=== PATIENT | male | born 1950 | race Caucasian/White ===

== ENCOUNTER 2018-10-23 11:04 | Day surgery (SDC) | payer MEDICARE, OTHER ==
[~2018-10-23] VITALS: Ht 180.3 cm; Wt 100.9 kg
[~2018-10-23 11:04] MED LIST: ALBU90OI INH; AMLO10 PO; ANTOXYBENA OT; ATOR20 PO; CIPHYDOTSU OT; CLAR500 PO; GABA100 PO; HYDACE5 PO; HYDCHL12.5 PO; HYDCHL25; LISI10; LISI20 PO; NEOPOLHYDS OT; PRED20 PO; TRAM50 PO; ZESTRIL40 MG PO; [UNRECOGNIZED DRUG - OTHER]
--- NOTE | 2018-10-23 12:20 | NUR ---
10/23/[address] AT BEDSIDE TO DO INJECTION. PULSE OXIMETER APPLIED AFTER VERSED GIVEN BY
== END 2018-10-23 13:25 | disposition home or self-care (01) ==
LOC: ORSCSDS 11:04
PROVIDERS: Orthopaedic Surgery
PROC: 01N54ZZ Release Median Nerve, Percutaneous Endoscopic Approach (ICD-10-PCS; principal; 2018-10-23 11:45)
DX: G56.01 Carpal tunnel syndrome, right upper limb (principal); I10 Essential (primary) hypertension; E11.9 Type 2 diabetes mellitus without complications; Z79.899 Other long term (current) drug therapy; F17.210 Nicotine dependence, cigarettes, uncomplicated
CPT/HCPCS: 82947; J0690; J2250; J3010; J7120

== ENCOUNTER 2020-05-09 12:08 | Day surgery (SDC) | payer MEDICARE, OTHER ==
[~2020-05-09] VITALS: Ht 180.3 cm; Wt 102.9 kg
[~2020-05-09 12:08] MED LIST changes: -ATOR20 PO; +Aspirin EC81 MG PO; -GABA100 PO; +NORTRIPTYLINE H10 MG PO; +Norco 7.5-3251 EACH PO; +OXYCODONE-ACET1 EAC3 PO; +ROSU5 PO
== END 2020-05-09 18:12 | disposition home or self-care (01) ==
LOC: ATC 12:08
DX: L02.214 Cutaneous abscess of groin (principal); L03.314 Cellulitis of groin; F17.200 Nicotine dependence, unspecified, uncomplicated
CPT/HCPCS: 96365; 96366; J3370; J7050

== ENCOUNTER 2020-05-10 01:21 | Day surgery (SDC) | payer MEDICARE, OTHER | END 2020-05-10 09:40 | disposition home or self-care (01) | LOC: ATC 01:21 | DX: L02.214 Cutaneous abscess of groin (principal); F17.200 Nicotine dependence, unspecified, uncomplicated | CPT/HCPCS: 96365; 96366; J3370; J7050 ==

== ENCOUNTER → 2021-06-09 | Outpatient (CLI) | payer MEDICARE, OTHER | END | disposition home or self-care (01) | LOC: LAB SHORT 13:14 → LAB 13:14 | DX: S81.801A Unspecified open wound, right lower leg, initial encounter (principal) | CPT/HCPCS: 87070; 87075; 87077; 87147; 87186; 87205 ==

== ENCOUNTER 2022-06-21 12:56 | Inpatient (IN) | payer MEDICARE, OTHER ==
[~2022-06-21] VITALS: Ht 180.3 cm; Wt 66.7 kg
[~2022-06-21 12:56] MED LIST changes: -CYMBALTA30 M2 PO; -NEURONTIN300 MG PO; -NORTRIPTYLINE H2511 PO
[2022-06-21 17:28] LABS: Source, Urine Straight Cath
[2022-06-21 17:33] LABS: Appearance, Urine Clear (Clear); Bilirubin, Urine Neg (Neg); Blood, Urine Neg (Neg); Color, Urine Amber (P-Yellow); Glucose Qualitative, Urine Neg (Neg); Ketones, Urine Neg (Neg); Leukocyte Esterase, Urine Neg (Neg); Nitrite, Urine Neg (Neg); Protein, Urine 2+ (Neg); Urobilinogen, Urine NORM (Normal)
[2022-06-21 17:50] LABS: Bacteria Many /hpf; Hyaline Casts 0-2 /lpf (0-2); Red Blood Cells, Urine 0-2 /hpf (0-2); Squamous Epithelial Cells Few /hpf (Few); Transitional Epithelial Cells Rare /hpf (0-Rare)
[2022-06-21] MEDS ORDERED: CYMBALTA30 M2 PO (19:30)
[2022-06-21] MEDS ORDERED: NEURONTIN300 MG PO (19:30)
[2022-06-21] MEDS ORDERED: NORTRIPTYLINE H2511 PO (19:31)
--- NOTE | 2022-06-22 04:12 | NUR ---
SHIFT SUMMARY PT TO FLOOR FROM ED AT 2047. PT COMPLAINS OF HEAD AND UPPER ABDOMINAL PAIN. PT MEDICATED PER EMAR. PT SLEEPING OFF AND ON THROUGHOUT THE NIGHT. PT HAS NO COMPLAINTS AT THIS TIME, RESTING QUIETLY IN HIS ROOM. PT HAS CALL LIGHT WITHIN HIS REACH.
[2022-06-22 04:48] LABS: BASOPHILS ABSOLUTE AUTO 0.04 K/mm3 (0.00-0.23); BASOPHILS PERCENT AUTO 1 % (0-2); EOSINOPHILS ABSOLUTE AUTO 0.08 K/mm3 (0.00-0.68); EOSINOPHILS PERCENT AUTO 1 % (0-6); Hematocrit 31.6 % (37.0-53.0); Hemoglobin 10.4 g/dL (13.5-17.5); IMMATURE GRAN ABSOLUTE AUTO 0.11 K/mm3 (0.00-0.10); IMMATURE GRAN PERCENT AUTO 1 % (0-1); LYMPHOCYTES ABSOLUTE AUTO 0.75 K/mm3 (0.84-5.20); LYMPHOCYTES PERCENT AUTO 9 % (21-46); MONOCYTES ABSOLUTE AUTO 0.84 K/mm3 (0.16-1.47); MONOCYTES PERCENT AUTO 10 % (4-13); Mean Corpuscular HGB Conc 32.9 g/dL (31.5-36.5); Mean Corpuscular Volume 91 fL (80-100); Mean Platelet Volume 10.4 fL (9.1-12.4); NEUTROPHILS ABSOLUTE AUTO 6.52 K/mm3 (1.96-9.15); NEUTROPHILS PERCENT AUTO 78 % (41-73); Platelet Count 319 K/mm3 (150-400); RDW Coefficient Variation 15.2 % (11.7-14.2); RDW Standard Deviation 50.5 fL (35.1-46.3); Red Blood Cell Count 3.47 M/mm3 (4.30-5.90); White Blood Cell Count 8.34 K/mm3 (4.00-11.30)
[2022-06-22 05:18] LABS: Albumin, Blood 1.9 g/dL (3.4-5.0); Albumin/Globulin Ratio 0.4 (0.8-1.8); Bilirubin, Total 0.3 mg/dL (0.1-1.0); Bun/Creatinine Ratio 38.8 (12.0-20.0); Calcium, Blood 8.1 mg/dL (8.5-10.1); Creatinine, Blood 2.81 mg/dL (0.60-1.20); Globulin, Blood 4.4 g/dL (2.2-4.0); Potassium, Blood 4.2 mmol/L (3.5-5.5); Thyroid Stimulating Hormone 1.85 uIU/mL (0.360-4.800); Total Protein, Blood 6.3 g/dL (6.4-8.2)
[2022-06-22 07:09] LABS: Adenovirus F 40/41 Not Detected (NOT DETECT); Astrovirus Not Detected (NOT DETECT); Campylobacter Sp Not Detected (NOT DETECT); Cryptosporidium Not Detected (NOT DETECT); Cyclospora Cayetanensis Not Detected (NOT DETECT); E. Coli O157 Not Detected (NOT DETECT); Entamoeba Histolytica Not Detected (NOT DETECT); Enteroaggregative E. coli-EAEC Not Detected (NOT DETECT); Enteropathogenic E. coli-EPEC Not Detected (NOT DETECT); Enterotoxigenic E. coli-ETEC Not Detected (NOT DETECT); Giardia Lamblia Not Detected (NOT DETECT); Norovirus GI/GII Not Detected (NOT DETECT); Plesiomonas Shigelloides Not Detected (NOT DETECT); Rotavirus A Not Detected (NOT DETECT); Salmonella Sp Not Detected (NOT DETECT); Sapovirus Not Detected (NOT DETECT); Shiga Toxin-prod E. coli-STEC Not Detected (NOT DETECT); Shigella/Enteroin E. coli-EIEC Not Detected (NOT DETECT); Vibrio Cholerae Not Detected (NOT DETECT); Vibrio Sp Not Detected (NOT DETECT); Yersinia Enterocolitica Not Detected (NOT DETECT)
--- NOTE | 2022-06-22 10:44 | NUR ---
WAQAR CAN IS PATIENTS LIFE PARTNER, PHONE NUMBER [phone], WAQAR REPORTS PATIENT LIVES WITH HER BUT GOT INTO A ARGUEMENT WITH THE [employer]ANDLORD AND THEN THE PATIENT LEFT AND WAS CAMPLING WITH HIS DAUGHTERM SON IN LAW, AND GRANDSON. REPORTED TO CASE MANAGEMENT, PATIENT RESTING, NO DISTRESS
--- NOTE | 2022-06-22 16:04 | NUR ---
patient okayed to release information to Shavon De La Cruz his life partner
[2022-06-22 17:12] LABS: SARS-Cov-2 (COVID-19) PCR, MMC POSITIVE (NEGATIVE)
--- NOTE | 2022-06-22 18:24 | NUR ---
MAKES NEEDS KNOWN, ALERT AND ORIENTED, POSITIVE FOR COVID, ISOLATION UP, REPORTED TO DR PAYAN. LS DIMINISHED, RHONCHI AT TIMES, COUGH CLEARS CONGESTION. GOOD APPETITE, VOIDING PER BSU, DIARRHEA HAS SLOWED DOWN. RIB PAIN FROM FALL/COUGHING, NO N/V. NEGATIVE FOR C-DIFF. PATIENT OKAY RELEASE OF INFORMATION TO WAQAR CAN [phone]. CALL LIGHT WITH IN REACH, [facility]
[2022-06-23 05:17] LABS: BASOPHILS ABSOLUTE AUTO 0.03 K/mm3 (0.00-0.23); BASOPHILS PERCENT AUTO 0 % (0-2); EOSINOPHILS ABSOLUTE AUTO 0.03 K/mm3 (0.00-0.68); EOSINOPHILS PERCENT AUTO 0 % (0-6); Hematocrit 29.9 % (37.0-53.0); Hemoglobin 9.7 g/dL (13.5-17.5); IMMATURE GRAN ABSOLUTE AUTO 0.13 K/mm3 (0.00-0.10); IMMATURE GRAN PERCENT AUTO 2 % (0-1); LYMPHOCYTES ABSOLUTE AUTO 0.94 K/mm3 (0.84-5.20); LYMPHOCYTES PERCENT AUTO 11 % (21-46); MONOCYTES ABSOLUTE AUTO 0.76 K/mm3 (0.16-1.47); MONOCYTES PERCENT AUTO 9 % (4-13); Mean Corpuscular HGB 29.4 pg (26.0-34.0); Mean Corpuscular HGB Conc 32.4 g/dL (31.5-36.5); Mean Corpuscular Volume 91 fL (80-100); Mean Platelet Volume 10.3 fL (9.1-12.4); NEUTROPHILS ABSOLUTE AUTO 6.91 K/mm3 (1.96-9.15); NEUTROPHILS PERCENT AUTO 79 % (41-73); Platelet Count 318 K/mm3 (150-400); RDW Coefficient Variation 15.1 % (11.7-14.2); RDW Standard Deviation 50.3 fL (35.1-46.3)
[2022-06-23 05:34] LABS: Albumin, Blood 1.8 g/dL (3.4-5.0); Anion Gap 7 mmol/L (6-16); Blood Urea Nitrogen 82 mg/dL (8-24); CO2, Blood 17 mmol/L (21-32); Calcium, Blood 7.7 mg/dL (8.5-10.1); Chloride, Blood 112 mmol/L (98-108); Creatinine, Blood 2.16 mg/dL (0.60-1.20); Glomerular Filtration Rate 32 (60-); Glucose, Blood 99 mg/dL (70-99); Phosphorus, Blood 3.1 mg/dL (2.5-4.9); Potassium, Blood 4.3 mmol/L (3.5-5.5); Sodium, Blood 136 mmol/L (136-145)
--- NOTE | 2022-06-23 05:58 | NUR ---
SHIFT SUMMARY 71 YR M ADMITTED ON 06/21/22 FOR PNEUMONIA/ARF. FULL CODE. NO ACUTE CHANGES THIS SHIFT. PT STATES THAT HE IS HAVING TROUBLE USING THE BED SIDE URINAL AND IS URINATING ON HIMSELF. HE WAS CHANGED SEVERAL TIMES THIS SHIFT AND TOLD STAFF THAT HE HAS A NEW FOUND RESPECT FOR THEM AND THAT HE WAS VERY THANKFUL FOR THE CARE. HE IS PLEASANT AND COOPERATIVE. NO BM THIS SHIFT. HE C/O PAIN IN HIS HIPS AND LEGS AND ASKED FOR PAIN MEDICATION ONE TIME.
--- NOTE | 2022-06-23 13:29 | NUR ---
ON CARE ROUNDING NOTED THAT WHILE SLEEPING THE PT RESPIRATIONS SEEMED LABORED. WHEN ASKED THE PT STATED "I AM HAVING A HARD TIME GETTING AIR" PT WAS PLACED ON 2L O2 VIA NC EARLIER IN THE SHIFT D/T INCREASED WORK OF BREATHING. CALLED DR BARNETT AT THIS TIME BECAUSE OF THE PT APPARENT RESP DISTRESS. RESP RATE 26-30 O2 SATS 100% LUNG SOUNDS DIMINISHED FROM EARLIER IN THE SHIFT WITH POSSIBLE FINE CRACKLES. IVF DC'D PRECAUTION AT THE TIME DR WAS CALLED. AT THE BEDSIDE TO EVALUATE, STAT BREATHING Tx AND STAT CHEST XR ORDERED. PT TO REMAIN ON O2 AND IVF DC'D.
--- NOTE | 2022-06-23 15:36 | NUR ---
CARE ROUNDING- PT IN BED, NO S&S OF DISTRESS NOTED RESP E/U. WILL CTM.
--- NOTE | 2022-06-23 17:55 | NUR ---
SHIFT SUMMARY- PT ALERT AND ORIENTED. PT HAD AN EPISODE OF RESPIRATORY DISTRESS THIS AFTERNOON. PT RECIEVED A BREATHING Tx WHICH SEEMED TO PROVIDE SOME RELIEF. BNP WAS ELEVATED SO PT WAS GIVEN IV LASIX. POST LASIX THE PT IS SITTING UP IN BED EATING HIS DINNER, PT WAS UNABLE TO SIT UP IN BED WITHOUT GREAT DIFFICULTY EARLIER IN THE SHIFT. PT SITTING UP AT THE EOB NO S&S OF DISTRESS AT THIS TIME WILL CTM AND PASS ON TO NIGHT RN IN REPORT.
[2022-06-24 05:32] LABS: BASOPHILS ABSOLUTE AUTO 0.04 K/mm3 (0.00-0.23); BASOPHILS PERCENT AUTO 0 % (0-2); EOSINOPHILS ABSOLUTE AUTO 0.07 K/mm3 (0.00-0.68); EOSINOPHILS PERCENT AUTO 1 % (0-6); Hemoglobin 10.2 g/dL (13.5-17.5); IMMATURE GRAN ABSOLUTE AUTO 0.12 K/mm3 (0.00-0.10); IMMATURE GRAN PERCENT AUTO 1 % (0-1); LYMPHOCYTES ABSOLUTE AUTO 0.95 K/mm3 (0.84-5.20); LYMPHOCYTES PERCENT AUTO 8 % (21-46); MONOCYTES ABSOLUTE AUTO 0.81 K/mm3 (0.16-1.47); MONOCYTES PERCENT AUTO 7 % (4-13); Mean Corpuscular HGB 29.7 pg (26.0-34.0); Mean Corpuscular HGB Conc 32.9 g/dL (31.5-36.5); Mean Corpuscular Volume 90 fL (80-100); Mean Platelet Volume 10.6 fL (9.1-12.4); NEUTROPHILS ABSOLUTE AUTO 10.19 K/mm3 (1.96-9.15); NEUTROPHILS PERCENT AUTO 84 % (41-73); Platelet Count 390 K/mm3 (150-400); RDW Coefficient Variation 15.1 % (11.7-14.2); RDW Standard Deviation 49.8 fL (35.1-46.3); Red Blood Cell Count 3.44 M/mm3 (4.30-5.90); White Blood Cell Count 12.18 K/mm3 (4.00-11.30)
[2022-06-24 05:55] LABS: Albumin, Blood 1.9 g/dL (3.4-5.0); Anion Gap 8 mmol/L (6-16); Blood Urea Nitrogen 66 mg/dL (8-24); Bun/Creatinine Ratio 33.3 (12.0-20.0); CO2, Blood 20 mmol/L (21-32); Calcium, Blood 8.1 mg/dL (8.5-10.1); Chloride, Blood 110 mmol/L (98-108); Creatinine, Blood 1.98 mg/dL (0.60-1.20); Glomerular Filtration Rate 35 (60-); Glucose, Blood 108 mg/dL (70-99); Phosphorus, Blood 3.3 mg/dL (2.5-4.9); Sodium, Blood 138 mmol/L (136-145)
--- NOTE | 2022-06-24 06:05 | NUR ---
SHIFT SUMMARY 71 YR M ADMITTED ON 06/21/22. FULL CODE. PT STATES THAT HE IS GETTING STRONGER AND IS ABLE TO SIT UP WHERE BEFORE HE COULD NOT. HOWEVER, HE STATES THAT HE IS HAVING A HARD TIME USING THE URINAL AND HE IS SPILLING URINE EVERYWHERE. HE SEEMS FRUSTRATED THAT HE IS HAVING TO URINATE SO OFTEN AND I EXPLAINED TO HIM THAT HE IS BEING DIURESED AND WHAT THAT DOES. HE HAD C/O VARMA AND WAS MEDICATED W/ TYLENOL PER EMAR. VITALS ARE WITHIN NORMAL LIMITS.
--- NOTE | 2022-06-24 16:43 | NUR ---
SHIFT SUMMARY PT AxOx4. PLEASANT AND COOPERATIVE WITH CARE. PT REPORTS FEELING WORSE TODAY. HE STATES HE IS EXTREMELY FATIGUED AND WEAK AND JUST WANTS TO STAY IN BED AND SLEEP. PT IS BREATHING ROOM AIR WITHOUT DIFFICULTY THIS SHIFT. PER WARD SECRETARY, HR SINUS RHYTHM AT 87. VITALS REVIEWED. PT IS CURRENTLY RESTING IN BED WITH CALL LIGHT IN REACH. CURRENT PLAN IS TO CONTINUE IV ABX AND REMDESIVIR, THEN DC TO SNF.
--- NOTE | 2022-06-25 05:13 | NUR ---
SHIFT SUMMARY 71 YR M ADMITTED ON 06/21/22 FOR PNEUMONIA. FULL CODE. COVID POSITIVE. NO ACUTE CHANGES THIS SHIFT. PT REQUESTED A SHOWER AND STATED THAT HE FELT MUCH BETTER AFTERWARD. HE STATED THAT HE WANTED HIS SANTIAGO SHAVED OFF BUT WOULD NOT ALLOW THE MANAGER WEB APPLICATION TO DO IT SHE WAS UNEXPERIENCED W/ SANTIAGO SHAVING. HE STILL C/O WEAKNESS AND SOB BUT REFUSES TO USE OXYGEN. HE WAS SPILLING HIS URINAL EVERY TIME HE USED IT AND HAD URINE ALL OVER THE BED AND FLOOR SO IT WAS DECIDED TO TRY A CONDOM CATH. PT WAS IN AGREEANCE TO THIS AND IT APPEARS TO BE WORKING WELL FOR HIM AND HE IS HAPPY WITH IT. PT STATES THAT HE IS MORE TIRED THAN USUAL AND JUST WANTS TO SLEEP. HE REQUESTED, AND RECEIVED, TYLENOL FOR HEADACHE.
[2022-06-25 05:21] LABS: BASOPHILS ABSOLUTE AUTO 0.04 K/mm3 (0.00-0.23); BASOPHILS PERCENT AUTO 0 % (0-2); EOSINOPHILS PERCENT AUTO 1 % (0-6); Hematocrit 32.6 % (37.0-53.0); Hemoglobin 10.5 g/dL (13.5-17.5); IMMATURE GRAN ABSOLUTE AUTO 0.13 K/mm3 (0.00-0.10); IMMATURE GRAN PERCENT AUTO 1 % (0-1); LYMPHOCYTES ABSOLUTE AUTO 1.16 K/mm3 (0.84-5.20); LYMPHOCYTES PERCENT AUTO 9 % (21-46); MONOCYTES ABSOLUTE AUTO 0.83 K/mm3 (0.16-1.47); MONOCYTES PERCENT AUTO 6 % (4-13); Mean Corpuscular HGB 29.4 pg (26.0-34.0); Mean Corpuscular HGB Conc 32.2 g/dL (31.5-36.5); Mean Corpuscular Volume 91 fL (80-100); Mean Platelet Volume 10.2 fL (9.1-12.4); NEUTROPHILS ABSOLUTE AUTO 11.38 K/mm3 (1.96-9.15); NEUTROPHILS PERCENT AUTO 83 % (41-73); Platelet Count 396 K/mm3 (150-400); RDW Coefficient Variation 15.4 % (11.7-14.2); RDW Standard Deviation 51.8 fL (35.1-46.3); Red Blood Cell Count 3.57 M/mm3 (4.30-5.90); White Blood Cell Count 13.64 K/mm3 (4.00-11.30)
[2022-06-25 06:11] LABS: Albumin, Blood 1.8 g/dL (3.4-5.0); Anion Gap 7 mmol/L (6-16); Blood Urea Nitrogen 55 mg/dL (8-24); Bun/Creatinine Ratio 32.2 (12.0-20.0); CO2, Blood 21 mmol/L (21-32); Calcium, Blood 7.9 mg/dL (8.5-10.1); Chloride, Blood 109 mmol/L (98-108); Creatinine, Blood 1.71 mg/dL (0.60-1.20); Glomerular Filtration Rate 42 (60-); Glucose, Blood 107 mg/dL (70-99); Sodium, Blood 137 mmol/L (136-145)
--- NOTE | 2022-06-25 18:51 | NUR ---
PATIENT IS ALERT AND ORIENTED AND COOPERATIVE WITH CARE. STATES HE FEELS BETTER TODAY. C/O CONSTIPATION, MEDICATED PER EMAR. WORKED WITH PT OT. CONDOM CATHETER IN PLACE AND WORKING WELL. ON RA. NO C/O SOB. WILL CONTINUE TO MONITOR
--- NOTE | 2022-06-25 22:31 | NUR ---
PERSONAL CARE DURING ASSESSMENT I NOTICED THE PT'S BRIEFS WERE DAMP AND HIS CONDOM CATHETER WAS NOT FITTING WELL. I OFFERED TO CHANGE HIM AND TO READJUST THE CATHETER BUT PT REFUSED CARE UNTIL TOMORROW MORNING SO HE CAN SLEEP.
--- NOTE | 2022-06-26 05:50 | NUR ---
SHIFT SUMMARY PT AOX4. EARLY IN THE NIGHT AFTER HIS FIRST ATTENDS CHANGE HIS CONDOM CATHETER WAS LEAKING AND HE REFUSED ALL CARE STATING HE JUST WANTED TO REST. PT REFUSED HEPARIN AND SCDS, I EDUCATED ABOUT INCREASED RISK OF BLOOD CLOTS FROM BOTH [facility]. PT CONTINUES TO HAVE WET, PRODUCTIVE COUGH AND MAINTANES O2 SAT > 93% ON RA. PT IS COVID +, HAS AN OCCASIONAL WET PRODUCTIVE COUGH AND C/O FATIGUE.
[2022-06-26 05:57] LABS: BASOPHILS ABSOLUTE AUTO 0.05 K/mm3 (0.00-0.23); BASOPHILS PERCENT AUTO 0 % (0-2); EOSINOPHILS ABSOLUTE AUTO 0.09 K/mm3 (0.00-0.68); EOSINOPHILS PERCENT AUTO 1 % (0-6); Hemoglobin 9.7 g/dL (13.5-17.5); IMMATURE GRAN ABSOLUTE AUTO 0.12 K/mm3 (0.00-0.10); IMMATURE GRAN PERCENT AUTO 1 % (0-1); LYMPHOCYTES ABSOLUTE AUTO 1.12 K/mm3 (0.84-5.20); LYMPHOCYTES PERCENT AUTO 8 % (21-46); MONOCYTES ABSOLUTE AUTO 0.94 K/mm3 (0.16-1.47); MONOCYTES PERCENT AUTO 7 % (4-13); Mean Corpuscular HGB 29.8 pg (26.0-34.0); Mean Corpuscular HGB Conc 33.4 g/dL (31.5-36.5); Mean Corpuscular Volume 89 fL (80-100); Mean Platelet Volume 9.6 fL (9.1-12.4); NEUTROPHILS ABSOLUTE AUTO 10.96 K/mm3 (1.96-9.15); NEUTROPHILS PERCENT AUTO 83 % (41-73); Platelet Count 362 K/mm3 (150-400); RDW Coefficient Variation 15.3 % (11.7-14.2); RDW Standard Deviation 50.4 fL (35.1-46.3); Red Blood Cell Count 3.25 M/mm3 (4.30-5.90); White Blood Cell Count 13.28 K/mm3 (4.00-11.30)
[2022-06-26 06:15] LABS: Albumin, Blood 1.7 g/dL (3.4-5.0); Anion Gap 8 mmol/L (6-16); Blood Urea Nitrogen 49 mg/dL (8-24); Bun/Creatinine Ratio 29.3 (12.0-20.0); CO2, Blood 20 mmol/L (21-32); Calcium, Blood 7.9 mg/dL (8.5-10.1); Chloride, Blood 107 mmol/L (98-108); Creatinine, Blood 1.67 mg/dL (0.60-1.20); Glomerular Filtration Rate 43 (60-); Glucose, Blood 112 mg/dL (70-99); Phosphorus, Blood 3.3 mg/dL (2.5-4.9); Potassium, Blood 4.3 mmol/L (3.5-5.5); Sodium, Blood 135 mmol/L (136-145)
--- NOTE | 2022-06-26 17:29 | NUR ---
END OF SHIFT SUMMARY: PATIENT REPORTED FEELING WORSE TODAY. HE SPECIFICALLY MENTIONED VERTIGO AND FATIGUE. DISCUSSED INTERVENTIONS. INITIALLY PATIENT DECLINED, BUT ACCEPTED PRN FOR VERTIGO THIS EVENING. PATIENT REPOTED SOME IMPROVEMENT THE DAY PROGRESSED. PATIENT WORKED WITH PT AND OT TODAY. SOME SHORTNESS OF BREATH NOTED WITH ACTIVITY. PATIENT RECOVERED QUICKLY AT REST. PATIENT UP TO THE BEDSIDE COMMODE. PATIENT HAS HAD MULTIPLE, FORMED BOWEL MOVEMENTS TODAY. PATIENT HAS BEEN ABLE TO SUCCESSFULLY USE THE URINAL.
--- NOTE | 2022-06-27 05:35 | NUR ---
SHIFT SUMMARY PT REPORTS NO MORE VERTIGO AND GREATLY IMPROVED FATIGUE THIS MORNING AFTER SLEEPING WELL THROUGH MOST OF THE NIGHT. PT WAS ABLE TO VOID IN THE URINAL BUT HAD ONE EPISODE OF INCONTINENC. NO C/O OF PAIN OR NAUSEA T/O SHIFT. PT IS GETTING UP AND USING THE BEDSIDE COMMODE. PT HAS AN OCCASIONAL PRODUCTIVE COUGH AND IS COVID+.
--- NOTE | 2022-06-27 18:52 | NUR ---
END OF SHIFT SUMMARY: PATIENT REPORTED FEELING MORE TIRED TODAY. PATIENT SLEPT WHEN STAFF OR FAMILY WAS NOT IN HIS ROOM. PATIENT CONTINUED TO DENY VERTIGO. PATIENT REPORTED KNEE PAIN THIS MORNING THAT RESOLVED WITH REPOSITIONING AND PRN PAIN MEDICATION. PATIENT UP TO [place] [facility] [place] PATIENT WORKED IN THE ROOM WITH PT. PATIENT CONTINUES TO HAVE A MODERATE APPETITE (ABOUT 50-60%) OF HIS TRAY. PATIENT REPORTED THAT HIS BREATHING FEELS ABOUT THE SAME YESTERDAY. CONTINUES TO HAVE A NON-PRODUCTIVE COUGH. PATIENT DENIES SHORTNESS OF BREATH AT REST. HAS SOME SHORTNESS OF BREATH WITH ACTIVITY.
--- NOTE | 2022-06-28 04:36 | NUR ---
SHIFT SUMMARY NO ACUTE CHANGES THIS SHIFT. PT REMAINED ON RA, O2 SATS > 90%. PT DOES REPORT SOME SOB WITH EXERTION BUT MINIMALLY AND PT RECOVERS EASILY. PT UP INDEPENDENT TO BSC OR USES URINAL INDEPENDENTLY IN THE BED. PT DENIED ANY DIZZINESS OR VERTIGO TONIGHT. ONLY REPORTS FEELING "TIRED". SLEPT MOST OF THE EVENING. NO EVENTS ON TELEMETRY. RUNNING SR IN THE 80'S-90'S. VITAL SIGNS STABLE. PLAN FOR D/C TO SNF AFTER QUARANTINE.
--- NOTE | 2022-06-28 17:00 | NUR ---
END OF SHIFT SUMMARY: PATIENT REPORTED FEELING LESS FATIGUE TODAY AND THAT HIS COUGH HAS IMPROVED. PATIENT DENIED VERTIGO THROUGHOUT THE SHIFT. PATIENT CONTINUES TO DENY SHORTNESS OF BREATH, BUT REPORTS MINIMAL SHORTNESS OF BREATH WITH ACTIVITY. PATIENT UP TO THE RECLINER, BSC AND WORKED WITH PT. PATIENT COMPLAINED OF A HEADACHE THIS MORNING THAT RESOLVED WITH PRN TYLENOL AND REST.
--- NOTE | 2022-06-29 04:52 | NUR ---
SHIFT SUMMARY PT SLEPT MUCH OF THE NIGHT. REPORTS FEELING OVERALL IMPROVED. HAD A HEADACHE AGAIN THIS EVENING THAT HE STATED "HAD BEEN BUILDING UP FOR A WHILE". MEDICATED X 1 W/ TYLENOL WITH GOOD EFFECT. PT MOSTLY CONTINENT BUT HAS SOME DIFFICULTY WITH USING HIS HANDS AND DID DUMP THE URINAL THIS EVENING. HAD A BOWEL MOVEMENT TONIGHT. REMAINED ON RA. TELEMETRY READING SR IN THE 90'S. VITAL SIGNS STABLE. PT AWAITING QUARANTINE TIME FOR D/C TO SNF.
--- NOTE | 2022-06-29 18:43 | NUR ---
SHIFT SUMMARY PLEASANT 71-YEAR-OLD MALE, FULL CODE, A&O X4. PTN STANDBY ASSIST, INDEPENDENT IN ROOM. ON ROOM AIR. PERIPHERAL IV TO LEFT UPPER ARM, DC'D THIS SHIFT. ORDER FOR NO IV ACCESS BY DR KAUR. TELEMETRY SINUS, AND SISSY DC'D PER MD ORDER THIS SHIFT. PTN INDEPENDENT TO BEDSIDE COMMODE OR USE OF URINAL. PTN USE OF ADAPTIVE DEVICES FOR EATING DUE TO WEAK BARREL FILLER STRENGTH POST CARPAL TUNNEL SURGERY. PTN NOT INTERESTED IN HEPARIN INJECTIONS AND SCDS WERE ORDERED. DIET REGULAR. ISOLATION PRECAUTIONS IN PLACE FOR COVID. AWAITING PLACEMENT TO SNF, POSSIBLY 07/03. CONTINUE TO MONITOR.
--- NOTE | 2022-06-30 05:04 | NUR ---
SHIFT SUMMARY: PT IS ALERT AND ORIENTED. PT IS CALM AND COOPERATIVE WITH CARE. PT CALLS APPROPRIATELY. PT IS INDEPENDENT IN THE ROOM. PT REPORTS HEADACHE, GAVE PRN TYLENOL. PT DENIES NAUSEA, VOMITING, AND SOB. PT SLEPT MUCH OF THE NIGHT WITHOUT INCIDENT. BED IN LOW POSITION, CALL LIGHT WITHIN REACH. WILL CONTINUE TO MONITOR.
--- NOTE | 2022-06-30 17:54 | NUR ---
SHIFT SUMMARY PT A&O X4. VSS. DENIED PAIN OR ANY DISCOMFORT THROUGHOUT SHIFT. PT DID STATE HE WAS QUITE HUNGRY HOWEVER AND CONTINUED TO ASK FOR SNACKS. HE HAS SAT UP IN THE CHAIR MAJORITY OF THE SHIFT WATCHING TV. CALLS APPROPRIATELY, IS COOPERATIVE WITH ALL CARE. CALL LIGHT WITHIN REACH. PLAN IS TRANSFER TO SNF/REHAB ON SATURDAY.
--- NOTE | 2022-07-01 05:38 | NUR ---
SHIFT SUMMARY: PT IS ALERT AND ORIENTED. PT IS CALM AND COOPERATIVE WITH CARE. PT CALLS APPROPRIATELY. PT IS INDEPENDENT IN THE ROOM. PT REPORTS HEADACHE, GAVE PRN TYLENOL. PT DENIES NAUSEA, VOMITING, AND SOB. PT SLEPT MUCH OF THE NIGHT WHEN NOT DISTURBED. NO ACUTE CHANGES OR COMPLICATIONS THIS SHIFT. BED IN LOW POSITION, CALL LIGHT WITHIN REACH. WILL REPORT TO DAY NURSE.
--- NOTE | 2022-07-01 16:49 | NUR ---
SHIFT SUMMARY PT IND IN ROOM. UP IN CHAIR MOST THE DAY. AMBULATES SMALL DISTANCES AND USES THE BSC BY HIMSELF. PT CONTINUES TO DENY SOB AND SATING IN THE 90S ON RA. DR. KAUR TALKED WITH THE PT ABOUT POSSIBLY GOING HOME WITH HH VS SNF LATER THIS WEEK. PHYSICAL THERAPY TO SEE THE PT AGAIN TOMORROW TO HELP WITH THIS DECISION.
--- NOTE | 2022-07-02 01:45 | NUR ---
SHIFT SUMMARY PTN A&O, INDEPENDENT, CONTINENT. NO IV ACCESS ORDER. DROPLET PRECAUTIONS IN PLACE. EXPECTED TO DISCHARGE HOME WITH OR TO [facility]. FULL CODE. PTN WAS SLEEPING AT 2140 AND REFUSED MEDS, STATING THAT HE IS USED TO TAKING THEM AROUND 2029. CONTINUE TO MONITOR.
--- NOTE | 2022-07-02 05:54 | NUR ---
This nurse assumed care of patient after 214. Patient is noted to be sleeping quietly in room. Patient remains in enhanced isolation for covid infection, he should be out of quarentine today per report. Pt does not like to be disturbed. He is stable. Will continue to monitor.
[2022-07-02] MEDS ORDERED: ACET325 PO (11:04)
[2022-07-02] MEDS ORDERED: GUAI600T33 PO (11:05)
[2022-07-02] MEDS ORDERED: FAMO10 PO (11:05)
[2022-07-02] MEDS ORDERED: MECL25 PO (11:05)
[2022-07-02] MEDS ORDERED: MELATONIN5 M1 PO (11:06)
--- NOTE | 2022-07-02 12:29 | NUR ---
DISCHARGE SUMMARY: PT DISCHARGED TODAY TO HOME WITH HOME HEALTH. PT EDUCATED ON DISCHARGE PLAN AND MEDICATIONS. PT REQUESTED MEDICATION SCRIPTS BE SENT TO [facility] DESPITE BEING CLOSED TODAY. COMPLETED REQUESTED. PT ASSISTED WITH PACKING UP BELONGINGS. PT DRESSED SELF AND ESCORTED TO V AND WAS PICKED UP BY FRIEND.
== END 2022-07-02 12:18 | disposition home health service (06) | DRG 871 ==
LOC: ER 12:56 → MEDS 21:36
PROVIDERS: Emergency Medicine; Internal Medicine; Student in an Organized Health Care Education/Training Program; ADMIT Internal Medicine
PROC: 3E03329 Introduction of Other Anti-infective into Peripheral Vein, Percutaneous Approach (ICD-10-PCS; principal; 2022-06-22)
PROC: 8E0ZXY6 Isolation (ICD-10-PCS; 2022-06-23)
PROC: XW033E5 Introduction of Remdesivir Anti-infective into Peripheral Vein, Percutaneous Approach, New Technology Group 5 (ICD-10-PCS; 2022-06-23)
DX: A41.9 Sepsis, unspecified organism (principal); J18.9 Pneumonia, unspecified organism; U07.1 COVID-19; J96.01 Acute respiratory failure with hypoxia; N17.9 Acute kidney failure, unspecified; R65.20 Severe sepsis without septic shock; E78.00 Pure hypercholesterolemia, unspecified; F17.210 Nicotine dependence, cigarettes, uncomplicated; R42 Dizziness and giddiness; E86.0 Dehydration; K52.9 Noninfective gastroenteritis and colitis, unspecified; R51.9 Headache, unspecified; I12.9 Hypertensive chronic kidney disease with stage 1 through stage 4 chronic kidney disease, or unspecified chronic kidney disease; N18.9 Chronic kidney disease, unspecified; Z71.6 Tobacco abuse counseling; Z98.890 Other specified postprocedural states; Z98.41 Cataract extraction status, right eye; Z98.42 Cataract extraction status, left eye; Z79.82 Long term (current) use of aspirin; Z79.899 Other long term (current) drug therapy
CPT/HCPCS: 36415; 70450; 71045; 74176; 80053; 80069; 81001; 82140; 83036; 83605; 83880; 84443; 85025; 87040; 87086; 87507; 93005; 93010; 94640; 94664; 94760; 96365; 96375; 97110; 97112; 97116; 97161; 97166; 97530; 97535; 99285-25; A9270; J0248; J0456; J0696; J1644; J1940; J2765; J3010; J7030; J7050; U0004

== ENCOUNTER → 2022-06-21 | Outpatient (CLI) | payer MEDICARE, OTHER ==
[~2022-06-21] MED LIST changes: +CYMBALTA30 M2 PO; +NEURONTIN300 MG PO; +NORTRIPTYLINE H2511 PO
[2022-06-21 11:59] LABS: BASOPHILS ABSOLUTE AUTO 0.03 K/mm3 (0.00-0.23); BASOPHILS PERCENT AUTO 0 % (0-2); EOSINOPHILS ABSOLUTE AUTO 0.03 K/mm3 (0.00-0.68); EOSINOPHILS PERCENT AUTO 0 % (0-6); Hematocrit 34.6 % (37.0-53.0); Hemoglobin 11.8 g/dL (13.5-17.5); IMMATURE GRAN ABSOLUTE AUTO 0.14 K/mm3 (0.00-0.10); IMMATURE GRAN PERCENT AUTO 1 % (0-1); LYMPHOCYTES ABSOLUTE AUTO 0.97 K/mm3 (0.84-5.20); LYMPHOCYTES PERCENT AUTO 10 % (21-46); MONOCYTES ABSOLUTE AUTO 0.87 K/mm3 (0.16-1.47); MONOCYTES PERCENT AUTO 9 % (4-13); Mean Corpuscular HGB Conc 34.1 g/dL (31.5-36.5); Mean Corpuscular Volume 88 fL (80-100); Mean Platelet Volume 10.6 fL (9.1-12.4); NEUTROPHILS ABSOLUTE AUTO 8.06 K/mm3 (1.96-9.15); NEUTROPHILS PERCENT AUTO 80 % (41-73); Platelet Count 375 K/mm3 (150-400); RDW Coefficient Variation 15.2 % (11.7-14.2); RDW Standard Deviation 48.9 fL (35.1-46.3); Red Blood Cell Count 3.93 M/mm3 (4.30-5.90)
[2022-06-21 12:08] LABS: Albumin, Blood 2.3 g/dL (3.4-5.0); Albumin/Globulin Ratio 0.4 (0.8-1.8); Bilirubin, Total 0.3 mg/dL (0.1-1.0); Bun/Creatinine Ratio 29.1 (12.0-20.0); Calcium, Blood 8.5 mg/dL (8.5-10.1); Creatinine, Blood 3.85 mg/dL (0.60-1.20); Globulin, Blood 5.2 g/dL (2.2-4.0); Potassium, Blood 4.2 mmol/L (3.5-5.5); Total Protein, Blood 7.5 g/dL (6.4-8.2)
== END | disposition home or self-care (01) ==
LOC: LAB 11:53 → LAB SHORT 11:53
PROVIDERS: Physician Assistant
DX: R19.7 Diarrhea, unspecified (principal)
CPT/HCPCS: 80053; 85025

== ENCOUNTER → 2023-06-21 | Outpatient (CLI) | payer MEDICARE, OTHER ==
[~2023-06-21] MED LIST changes: +ACET325 PO; +CYMBALTA30 M2 PO; +FAMO10 PO; +GUAI600T33 PO; +MECL25 PO; +MELATONIN5 M1 PO; +NEURONTIN300 MG PO; +NORTRIPTYLINE H2511 PO
[2023-06-21 13:16] LABS: Protein, Urine Quantitative 347.8 mg/dL (0.0-11.9)
== END ==
LOC: LAB 08:00 → LAB SHORT 08:00
PROVIDERS: Internal Medicine Nephrology
DX: N18.30 Chronic kidney disease, stage 3 unspecified (principal); D63.1 Anemia in chronic kidney disease; N25.81 Secondary hyperparathyroidism of renal origin; E55.9 Vitamin D deficiency, unspecified; E78.00 Pure hypercholesterolemia, unspecified; R76.9 Abnormal immunological finding in serum, unspecified; R94.5 Abnormal results of liver function studies; R94.6 Abnormal results of thyroid function studies; D51.8 Other vitamin B12 deficiency anemias; D52.8 Other folate deficiency anemias; D50.9 Iron deficiency anemia, unspecified
CPT/HCPCS: 81050; 82043; 82570; 84156

== ENCOUNTER 2024-05-26 14:02 | Inpatient (IN) | payer MEDICARE, OTHER ==
[~2024-05-26] VITALS: Ht 180.3 cm; Wt 99.8 kg
[~2024-05-26 14:02] MED LIST changes: -NEURONTIN300 MG PO; -ROSU5 PO; +ROSUVASTATIN CAL5 MG PO
[2024-05-26 14:32] LABS: BASOPHILS ABSOLUTE AUTO 0.05 K/mm3 (0.00-0.23); BASOPHILS PERCENT AUTO 1 % (0-2); EOSINOPHILS ABSOLUTE AUTO 0.08 K/mm3 (0.00-0.68); EOSINOPHILS PERCENT AUTO 1 % (0-6); Hemoglobin 8.2 g/dL (13.5-17.5); IMMATURE GRAN ABSOLUTE AUTO 0.04 K/mm3 (0.00-0.10); IMMATURE GRAN PERCENT AUTO 0 % (0-1); LYMPHOCYTES ABSOLUTE AUTO 1.11 K/mm3 (0.84-5.20); LYMPHOCYTES PERCENT AUTO 12 % (21-46); MONOCYTES ABSOLUTE AUTO 0.68 K/mm3 (0.16-1.47); MONOCYTES PERCENT AUTO 7 % (4-13); Mean Corpuscular HGB 29.7 pg (26.0-34.0); Mean Corpuscular HGB Conc 31.5 g/dL (31.5-36.5); Mean Corpuscular Volume 94 fL (80-100); Mean Platelet Volume 9.9 fL (9.1-12.4); NEUTROPHILS ABSOLUTE AUTO 7.65 K/mm3 (1.96-9.15); NEUTROPHILS PERCENT AUTO 80 % (41-73); Platelet Count 330 K/mm3 (150-400); RDW Standard Deviation 51.5 fL (35.1-46.3); Red Blood Cell Count 2.76 M/mm3 (4.30-5.90); White Blood Cell Count 9.61 K/mm3 (4.00-11.30)
[2024-05-26 14:58] LABS: Albumin, Blood 2.1 g/dL (3.4-5.0); Albumin/Globulin Ratio 0.4 (0.8-1.8); Bilirubin, Total 0.3 mg/dL (0.1-1.0); Bun/Creatinine Ratio 12.9 (12.0-20.0); Calcium, Blood 7.9 mg/dL (8.5-10.1); Creatinine, Blood 1.71 mg/dL (0.60-1.20); Globulin, Blood 4.8 g/dL (2.2-4.0); Potassium, Blood 4.7 mmol/L (3.5-5.5); Total Protein, Blood 6.9 g/dL (6.4-8.2)
[2024-05-26] MEDS ORDERED: Furosemide 10 MG / ML 2ML Vial IV ONE (17:55)
[2024-05-26] MEDS ORDERED: METOPROLOL TART5010 PO (18:12)
[2024-05-26] MEDS ORDERED: COMBIVENT RESPIM4 G1 INH (18:12)
[2024-05-26] MEDS ORDERED: PROAIR RESPICL90 MCG INH (18:13)
[2024-05-26] MEDS ORDERED: Neurontin 300300 MG PO (18:59)
[2024-05-26] MEDS ORDERED: METO50 PO (19:00)
[2024-05-26 19:24] VITALS: BP 169/74
[2024-05-26] MEDS ORDERED: Albuterol 2.5 MG/3 ML VIAL INH PRN (20:15)
[2024-05-26] MEDS ORDERED: Gabapentin 300 MG Cap PO SCH (22:15)
[2024-05-27 02:38] VITALS: BP 156/73
[2024-05-27 05:51] LABS: BASOPHILS ABSOLUTE AUTO 0.03 K/mm3 (0.00-0.23); BASOPHILS PERCENT AUTO 0 % (0-2); EOSINOPHILS ABSOLUTE AUTO 0.32 K/mm3 (0.00-0.68); EOSINOPHILS PERCENT AUTO 5 % (0-6); Hematocrit 26.8 % (37.0-53.0); Hemoglobin 8.2 g/dL (13.5-17.5); IMMATURE GRAN ABSOLUTE AUTO 0.02 K/mm3 (0.00-0.10); IMMATURE GRAN PERCENT AUTO 0 % (0-1); LYMPHOCYTES ABSOLUTE AUTO 1.39 K/mm3 (0.84-5.20); LYMPHOCYTES PERCENT AUTO 20 % (21-46); MONOCYTES ABSOLUTE AUTO 0.58 K/mm3 (0.16-1.47); MONOCYTES PERCENT AUTO 8 % (4-13); Mean Corpuscular HGB 28.5 pg (26.0-34.0); Mean Corpuscular HGB Conc 30.6 g/dL (31.5-36.5); Mean Corpuscular Volume 93 fL (80-100); NEUTROPHILS ABSOLUTE AUTO 4.78 K/mm3 (1.96-9.15); NEUTROPHILS PERCENT AUTO 67 % (41-73); Platelet Count 321 K/mm3 (150-400); RDW Coefficient Variation 14.9 % (11.7-14.2); RDW Standard Deviation 51.6 fL (35.1-46.3); Red Blood Cell Count 2.88 M/mm3 (4.30-5.90); White Blood Cell Count 7.12 K/mm3 (4.00-11.30)
--- NOTE | 2024-05-27 06:15 | NUR ---
Shift Summary Pt admitted from ED for acute CHF. He had worsening SoB for the past few days, he came in and was given Lasix in the ED. On this floor his respirations were 36 at rest, I called the hospitalist who ordered PRN oxygen. Pt was on 2L NC t/o the night. He had significant urinary output through the night of 2+L. Strict I+O maintaned. Pt had a recent fall at home, fall precautions in place. He is feeling light headed this morning, 1 assist to BR w/ bed alarm on. No c/o of chest pain or discomfort. AOx4.
[2024-05-27 06:24] LABS: Bun/Creatinine Ratio 11.5 (12.0-20.0); Creatinine, Blood 1.74 mg/dL (0.60-1.20); Magnesium, Blood 1.9 mg/dL (1.6-2.4); Potassium, Blood 4.2 mmol/L (3.5-5.5); Thyroid Stimulating Hormone 5.37 uIU/mL (0.360-4.800)
[2024-05-27 07:23] VITALS: BP 157/78
[2024-05-27] MEDS ORDERED: Enoxaparin 40 MG/0.4 ML SYR SC SCH (09:00)
[2024-05-27] MEDS ORDERED: Gabapentin 300 MG Cap PO SCH (09:00)
[2024-05-27 09:16] LABS: Free Thyroxine 0.94 ng/dL (0.70-1.60); Triiodothyronine, Free 2.05 pg/mL (2.18-3.98)
[2024-05-27] MEDS ORDERED: AMLO10 PO (09:42)
[2024-05-27] MEDS ORDERED: FOLI1 PO (09:42)
[2024-05-27] MEDS ORDERED: CALC.25 PO (09:43)
[2024-05-27] MEDS ORDERED: Aspir 8181 MG PO (09:44)
[2024-05-27] MEDS ORDERED: TraMADol HCl 50 MG Tab PO PRN (13:05)
--- NOTE | 2024-05-27 13:58 | NUR ---
Pt. is sitting up in a chair and welcomes my visit. Pt. is pleasant. Facilitated a life review and considered matters of community, julito and family. Pt. was unsettled by a recent discharge from [place] that he perceives was premature, and verbalizes his desire to not be released before a cause for his passing out can be identified and treated. Listen with empathy and a calming presence. During the process rapport is established. Prayed for Pt. Pt. verbalized gratitude for the spiritual care visit.
[2024-05-27] MEDS ORDERED: TRAM50 PO (14:26)
[2024-05-27] MEDS ORDERED: NEURONTIN300 MG PO (14:37)
[2024-05-27 15:13] VITALS: BP 160/77
[2024-05-27] MEDS ORDERED: Tiotropium Bromide 2.5 MCG/ACT MIST INHAL (10 ACT/4 GM) INH SCH (16:55)
[2024-05-27] MEDS ORDERED: Losartan Potassium 25 MG Tab PO SCH (17:00)
[2024-05-27] MEDS ORDERED: Furosemide 10 MG / ML 2ML Vial IV SCH (17:00)
--- NOTE | 2024-05-27 18:07 | NUR ---
SHIFT SUMMARY PT A&OX4, VSS, ON 2L O2 NC, AMB W/ SBA, TOLERATING PO, VOIDING, AND PAIN MANAGED PER EMAR. MED REC COMPLETED THIS SHIFT. PT HAD ECHO THIS AM, RESULTS PENDING. NO OTHER ACUTE CHANGES. CALL LIGHT WITHIN REACH AND PT ABLE TO MAKE NEEDS KNOWN.
[2024-05-27 20:56] VITALS: BP 170/74
[2024-05-27] MEDS ORDERED: Nortriptyline HCl 25 MG Cap PO SCH (21:00)
--- NOTE | 2024-05-28 04:28 | NUR ---
STAFF EDITOR SUMMARY BP ELEVATED OTHERWISE VSS. ALERT AND ORIENTED. UP AD NEETU, ABLE TO REPOSITION SELF IN BED WITHOUT ASSIST. COOPERATIVE WITH CARE. TOLERATES MEDS WELL WITH WATER. NO C/O CHEST PAIN. HAS BEEN RESTING QUIETLY WITH FEW INTERRUPTIONS. CALL LIGHT IN REACH, RAILS UP X 2 AND BED IN LOW POSITION FOR SAFETY. WILL CONTINUE TO MONITOR.
[2024-05-28 05:19] VITALS: BP 175/78
[2024-05-28 05:53] LABS: BASOPHILS ABSOLUTE AUTO 0.05 K/mm3 (0.00-0.23); BASOPHILS PERCENT AUTO 1 % (0-2); EOSINOPHILS ABSOLUTE AUTO 0.41 K/mm3 (0.00-0.68); EOSINOPHILS PERCENT AUTO 7 % (0-6); Hematocrit 30.3 % (37.0-53.0); Hemoglobin 9.3 g/dL (13.5-17.5); IMMATURE GRAN ABSOLUTE AUTO 0.01 K/mm3 (0.00-0.10); IMMATURE GRAN PERCENT AUTO 0 % (0-1); LYMPHOCYTES ABSOLUTE AUTO 1.57 K/mm3 (0.84-5.20); LYMPHOCYTES PERCENT AUTO 27 % (21-46); MONOCYTES ABSOLUTE AUTO 0.55 K/mm3 (0.16-1.47); MONOCYTES PERCENT AUTO 10 % (4-13); Mean Corpuscular HGB 28.4 pg (26.0-34.0); Mean Corpuscular HGB Conc 30.7 g/dL (31.5-36.5); Mean Corpuscular Volume 92 fL (80-100); Mean Platelet Volume 9.7 fL (9.1-12.4); NEUTROPHILS ABSOLUTE AUTO 3.19 K/mm3 (1.96-9.15); NEUTROPHILS PERCENT AUTO 55 % (41-73); Platelet Count 339 K/mm3 (150-400); RDW Coefficient Variation 14.8 % (11.7-14.2); RDW Standard Deviation 50.1 fL (35.1-46.3); Red Blood Cell Count 3.28 M/mm3 (4.30-5.90); White Blood Cell Count 5.78 K/mm3 (4.00-11.30)
[2024-05-28 06:23] LABS: Bun/Creatinine Ratio 11.8 (12.0-20.0); Calcium, Blood 8.5 mg/dL (8.5-10.1); Creatinine, Blood 1.78 mg/dL (0.60-1.20); Potassium, Blood 4.2 mmol/L (3.5-5.5)
[2024-05-28 07:35] VITALS: BP 131/92
[2024-05-28] MEDS ORDERED: Folic Acid 1 MG TAB PO SCH (09:00)
[2024-05-28] MEDS ORDERED: DULoxetine HCL 30 MG Cap DR PO SCH (09:00)
[2024-05-28] MEDS ORDERED: Empagliflozin 10 MG TAB PO SCH (09:00)
[2024-05-28] MEDS ORDERED: Aspirin 81 MG TabEC PO SCH (09:00)
[2024-05-28] MEDS ORDERED: Pravastatin Sodium 20 MG Tab PO SCH (09:00)
[2024-05-28] MEDS ORDERED: Metoprolol Succinate 50 MG TABCR PO SCH (09:00)
[2024-05-28] MEDS ORDERED: Furosemide 10 MG/ML 4ML Vial IV SCH (09:00)
[2024-05-28] MEDS ORDERED: Metoprolol Tartrate 50 MG Tab PO SCH (09:00)
[2024-05-28 12:16] VITALS: BP 133/72
[2024-05-28 15:28] VITALS: BP 135/72
[2024-05-28] MEDS ORDERED: JARDIANCE10 MG PO (16:39)
[2024-05-28] MEDS ORDERED: FURO40 PO (16:39)
[2024-05-28] MEDS ORDERED: LOSA50 PO (16:40)
--- NOTE | 2024-05-28 17:21 | NUR ---
DISCHARGE NOTE PT DISCHARGED HOME AT 1710. PT PROVIDED W/ VERBAL AND WRITTIN INSTRUCTIONS AND REPORTED UNDERSTANDING. PT A&OX4, VSS, AMB IND, TOLERATING PO, VOIDING, AND DENIED PAIN. BELONGINGS WERE RETURNED AND PT ESCOURTED OUT VIA W/C BY CHANTELLE DUGGAN.
[2024-05-29] MEDS ORDERED: Calcitriol 0.25 MCG Cap PO SCH (09:00)
== END 2024-05-28 17:15 | disposition home or self-care (01) | DRG 291 ==
LOC: ER 14:02 → MEDS 17:44
PROVIDERS: Physician Assistant; ADMIT Family Medicine
DX: I11.0 Hypertensive heart disease with heart failure (principal); I50.31 Acute diastolic (congestive) heart failure; J96.01 Acute respiratory failure with hypoxia; Z66 Do not resuscitate; G62.9 Polyneuropathy, unspecified; E78.00 Pure hypercholesterolemia, unspecified; F12.90 Cannabis use, unspecified, uncomplicated; J44.9 Chronic obstructive pulmonary disease, unspecified; W18.30XA Fall on same level, unspecified, initial encounter; F17.210 Nicotine dependence, cigarettes, uncomplicated; Z98.890 Other specified postprocedural states; Z79.899 Other long term (current) drug therapy
CPT/HCPCS: 36415; 70450; 71046; 80048; 80053; 83735; 83880; 84439; 84443; 84481; 84484; 85025; 93005; 93010; 93306; 94640; 94664; 94760; 99285-25; A9270; J1650; J1940

== ENCOUNTER → 2024-06-30 | Outpatient (CLI) | payer MEDICARE, OTHER ==
[~2024-06-30] MED LIST changes: +Aspir 8181 MG PO; +CALC.25 PO; +COMBIVENT RESPIM4 G1 INH; +DELTASONE20 MG PO; +FOLI1 PO; +FURO40 PO; +JARDIANCE10 MG PO; +LOSA50 PO; +METO50 PO; +METOPROLOL TART5010 PO; +NEURONTIN300 MG PO; +Neurontin 300300 MG PO; +PROAIR RESPICL90 MCG INH
[2024-06-30 12:30] LABS: Protein, Urine Quantitative 172.2 mg/dL (0.0-11.9)
== END | disposition home or self-care (01) ==
LOC: LAB 11:05 → LAB SHORT 11:05 → EDSTATUS 06-26 13:40 → LAB FUT 06-26 13:40
PROVIDERS: Internal Medicine Nephrology
DX: N18.30 Chronic kidney disease, stage 3 unspecified (principal); D63.1 Anemia in chronic kidney disease; R80.9 Proteinuria, unspecified
CPT/HCPCS: 81050; 84156

== ENCOUNTER 2024-09-25 22:17 | Inpatient (IN) | payer MEDICARE, OTHER ==
[~2024-09-25] VITALS: Ht 180.3 cm; Wt 82.4 kg
[~2024-09-25 22:17] MED LIST changes: -FURO40 PO
[2024-09-25 22:37] LABS: BASOPHILS ABSOLUTE AUTO 0.04 K/mm3 (0.00-0.23); BASOPHILS PERCENT AUTO 1 % (0-2); EOSINOPHILS ABSOLUTE AUTO 0.06 K/mm3 (0.00-0.68); EOSINOPHILS PERCENT AUTO 1 % (0-6); Hematocrit 37.6 % (37.0-53.0); Hemoglobin 12.3 g/dL (13.5-17.5); IMMATURE GRAN ABSOLUTE AUTO 0.03 K/mm3 (0.00-0.10); IMMATURE GRAN PERCENT AUTO 0 % (0-1); LYMPHOCYTES ABSOLUTE AUTO 0.62 K/mm3 (0.84-5.20); LYMPHOCYTES PERCENT AUTO 9 % (21-46); MONOCYTES ABSOLUTE AUTO 0.55 K/mm3 (0.16-1.47); MONOCYTES PERCENT AUTO 8 % (4-13); Mean Corpuscular HGB 28.9 pg (26.0-34.0); Mean Corpuscular HGB Conc 32.7 g/dL (31.5-36.5); Mean Corpuscular Volume 89 fL (80-100); NEUTROPHILS ABSOLUTE AUTO 5.77 K/mm3 (1.96-9.15); NEUTROPHILS PERCENT AUTO 82 % (41-73); Platelet Count 177 K/mm3 (150-400); RDW Coefficient Variation 15.1 % (11.7-14.2); RDW Standard Deviation 49.1 fL (35.1-46.3); Red Blood Cell Count 4.25 M/mm3 (4.30-5.90); White Blood Cell Count 7.07 K/mm3 (4.00-11.30)
[2024-09-25] MEDS ORDERED: Ipratropium/Albuterol SulF 2.5-0.5MG/3 ML Amp INH ONE (22:55)
[2024-09-25] MEDS ORDERED: Acetaminophen 500 MG Tab PO ONE (22:55)
[2024-09-25 22:58] LABS: Alanine Aminotransfer (ALT/SGP 27 U/L (12-78); Albumin, Blood 3.1 g/dL (3.4-5.0); Albumin/Globulin Ratio 0.8 (0.8-1.8); Alk Phos 71 U/L (50-136); Anion Gap 11 mmol/L (3-11); Aspartate Aminotrans (AST/SGOT 22 U/L (12-37); Bilirubin, Total 0.3 mg/dL (0.1-1.0); Blood Urea Nitrogen 30 mg/dL (8-24); Bun/Creatinine Ratio 14.6 (12.0-20.0); CO2, Blood 24 mmol/L (21-32); Calcium, Blood 8.3 mg/dL (8.5-10.1); Chloride, Blood 106 mmol/L (98-108); Creatinine, Blood 2.05 mg/dL (0.60-1.20); Globulin, Blood 3.8 g/dL (2.2-4.0); Glomerular Filtration Rate 34 (60-); Glucose, Blood 144 mg/dL (70-99); Potassium, Blood 3.9 mmol/L (3.5-5.5); Sodium, Blood 137 mmol/L (136-145); Total Protein, Blood 6.9 g/dL (6.4-8.2)
[2024-09-25 23:52] LABS: Influenza B, PCR NEGATIVE (NEGATIVE); Resp Syncytial Virus, PCR NEGATIVE (NEGATIVE); SARS-Cov-2 (COVID-19) PCR, MMC NEGATIVE (NEGATIVE)
[2024-09-26] LABS: Influenza A, PCR POSITIVE (NEGATIVE)
[2024-09-26] MEDS ORDERED: CefTRIAXone Sodium 1,000 MG in NS 100 ML IV ONE (02:00)
[2024-09-26] MEDS ORDERED: Doxycycline Hyclate 200 MG in Dextrose 5% 500 ML IV ONE (02:00)
[2024-09-26] MEDS ORDERED: FLU VACC TS2024-25(6MOS UP)/PF 45 MCG/0.5 ML SYRINGE IM ONE (02:55)
[2024-09-26] MEDS ORDERED: Ondansetron HCl 2 MG / ML 2ML Vial IV PRN (02:55)
[2024-09-26] MEDS ORDERED: NS 1,000 ML IV SCH (02:55)
[2024-09-26] MEDS ORDERED: Oseltamivir Phosphate 75 MG Cap PO SCH (03:00)
[2024-09-26] MEDS ORDERED: MethylPREDNISolone Sod Succ 125 MG Vial IV SCH ×2 (03:00→14:00)
[2024-09-26] MEDS ORDERED: Azithromycin 500 MG in NS 250 ML IV SCH (03:08)
[2024-09-26 03:14] LABS: Source, Urine Clean Catch
[2024-09-26 03:28] LABS: Bilirubin, Urine Neg (Neg); Blood, Urine 1+ (Neg); Glucose Qualitative, Urine 4+ (Neg); Ketones, Urine Neg (Neg); Leukocyte Esterase, Urine Neg (Neg); Nitrite, Urine Neg (Neg); Protein, Urine 4+ (Neg); Urobilinogen, Urine NORM (Normal)
[2024-09-26 03:54] LABS: Appearance, Urine Clear (Clear); Color, Urine Yellow (P-Yellow)
[2024-09-26 03:56] LABS: Amorphous Light (0-Heavy); Bacteria Few /hpf; Red Blood Cells, Urine 0-2 /hpf (0-2); Squamous Epithelial Cells Few /hpf (Few); White Blood Cells, Urine 0-2 /hpf (0-5)
[2024-09-26 03:57] LABS: Granular Casts 0-2 /lpf (0); Hyaline Casts 0-2 /lpf (0-2)
[2024-09-26 04:01] VITALS: BP 163/73
[2024-09-26 05:48] LABS: BASOPHILS ABSOLUTE AUTO 0.03 K/mm3 (0.00-0.23); BASOPHILS PERCENT AUTO 1 % (0-2); EOSINOPHILS ABSOLUTE AUTO 0.03 K/mm3 (0.00-0.68); EOSINOPHILS PERCENT AUTO 1 % (0-6); Hematocrit 37.6 % (37.0-53.0); Hemoglobin 11.9 g/dL (13.5-17.5); IMMATURE GRAN ABSOLUTE AUTO 0.02 K/mm3 (0.00-0.10); IMMATURE GRAN PERCENT AUTO 0 % (0-1); LYMPHOCYTES ABSOLUTE AUTO 1.08 K/mm3 (0.84-5.20); LYMPHOCYTES PERCENT AUTO 19 % (21-46); MONOCYTES ABSOLUTE AUTO 0.45 K/mm3 (0.16-1.47); MONOCYTES PERCENT AUTO 8 % (4-13); Mean Corpuscular HGB 28.3 pg (26.0-34.0); Mean Corpuscular HGB Conc 31.6 g/dL (31.5-36.5); Mean Corpuscular Volume 89 fL (80-100); Mean Platelet Volume 10.3 fL (9.1-12.4); NEUTROPHILS ABSOLUTE AUTO 3.96 K/mm3 (1.96-9.15); NEUTROPHILS PERCENT AUTO 71 % (41-73); Platelet Count 172 K/mm3 (150-400); RDW Coefficient Variation 15.2 % (11.7-14.2); RDW Standard Deviation 49.9 fL (35.1-46.3); Red Blood Cell Count 4.21 M/mm3 (4.30-5.90); White Blood Cell Count 5.57 K/mm3 (4.00-11.30)
[2024-09-26 06:13] LABS: Albumin, Blood 2.9 g/dL (3.4-5.0); Albumin/Globulin Ratio 0.7 (0.8-1.8); Bilirubin, Total 0.3 mg/dL (0.1-1.0); Bun/Creatinine Ratio 14.1 (12.0-20.0); Calcium, Blood 7.7 mg/dL (8.5-10.1); Creatinine, Blood 2.13 mg/dL (0.60-1.20); Globulin, Blood 3.9 g/dL (2.2-4.0); Potassium, Blood 3.6 mmol/L (3.5-5.5); Total Protein, Blood 6.8 g/dL (6.4-8.2)
[2024-09-26 07:26] VITALS: BP 143/90
[2024-09-26] MEDS ORDERED: Metoprolol Tartrate 50 MG Tab PO SCH (08:00)
[2024-09-26] MEDS ORDERED: Aspirin 81 MG TabEC PO SCH (09:00)
[2024-09-26] MEDS ORDERED: DULoxetine HCL 30 MG Cap DR PO SCH (09:00)
[2024-09-26] MEDS ORDERED: Gabapentin 300 MG Cap PO SCH (09:00)
[2024-09-26] MEDS ORDERED: Rosuvastatin Calcium 10 MG Tab PO SCH (09:00)
[2024-09-26] MEDS ORDERED: Calcitriol 0.25 MCG Cap PO SCH (09:00)
[2024-09-26] MEDS ORDERED: Enoxaparin 40 MG/0.4 ML SYR SC SCH (09:00)
[2024-09-26] MEDS ORDERED: TraMADol HCl 50 MG Tab PO SCH ×2 (09:00→18:00)
[2024-09-26] MEDS ORDERED: Ipratropium/Albuterol SulF 2.5-0.5MG/3 ML Amp INH SCH (10:25)
[2024-09-26] MEDS ORDERED: Albuterol 2.5 MG/3 ML VIAL INH PRN (10:25)
[2024-09-26 14:51] VITALS: BP 149/61
--- NOTE | 2024-09-26 18:26 | NUR ---
REPORT RECEIVED VERIFIED. PT IN ISOLATION RM FOR INFLU A, CALL LIGHT WITHIN REACH AND IS ABLE TO MAKE NEEDS KNOWN. UNEVENTFUL DAY. ASSISTED TO CHAIR FOR COMFORT, PT/OT TO WORK WITH PT. WILL CONT MONITORING
[2024-09-26 19:35] VITALS: BP 175/73
[2024-09-27] VITALS (8 sets, daily range): BP systolic 168–195; BP diastolic 70–98
[2024-09-27] MEDS ORDERED: Ipratropium/Albuterol SulF 2.5-0.5MG/3 ML Amp INH SCH (00:41)
--- NOTE | 2024-09-27 05:15 | NUR ---
SHIFT SUMMARY PATIENT SLEPT IN THE BED, INCONT OF URINE D/T SPILLING THE URINAL MULTIPLE TIMES. STATES HE IS FEELING A LITTLE STRONGER TONIGHT. TELE SB @ 57. REMAINS IN DROPLET ISOALTION FOR INFLUENZA.
[2024-09-27 05:49] LABS: BASOPHILS ABSOLUTE AUTO 0.01 K/mm3 (0.00-0.23); BASOPHILS PERCENT AUTO 0 % (0-2); EOSINOPHILS PERCENT AUTO 0 % (0-6); Hemoglobin 11.1 g/dL (13.5-17.5); IMMATURE GRAN ABSOLUTE AUTO 0.03 K/mm3 (0.00-0.10); IMMATURE GRAN PERCENT AUTO 0 % (0-1); LYMPHOCYTES ABSOLUTE AUTO 0.67 K/mm3 (0.84-5.20); LYMPHOCYTES PERCENT AUTO 8 % (21-46); MONOCYTES ABSOLUTE AUTO 0.26 K/mm3 (0.16-1.47); MONOCYTES PERCENT AUTO 3 % (4-13); Mean Corpuscular HGB 28.6 pg (26.0-34.0); Mean Corpuscular HGB Conc 31.7 g/dL (31.5-36.5); Mean Corpuscular Volume 90 fL (80-100); Mean Platelet Volume 10.2 fL (9.1-12.4); NEUTROPHILS ABSOLUTE AUTO 6.97 K/mm3 (1.96-9.15); NEUTROPHILS PERCENT AUTO 88 % (41-73); Platelet Count 160 K/mm3 (150-400); RDW Coefficient Variation 15.2 % (11.7-14.2); RDW Standard Deviation 50.4 fL (35.1-46.3); Red Blood Cell Count 3.88 M/mm3 (4.30-5.90); White Blood Cell Count 7.94 K/mm3 (4.00-11.30)
[2024-09-27] MEDS ORDERED: CefTRIAXone Sodium 1,000 MG in NS 100 ML IV SCH (06:00)
[2024-09-27 06:24] LABS: Bun/Creatinine Ratio 16.5 (12.0-20.0); Calcium, Blood 8.3 mg/dL (8.5-10.1); Creatinine, Blood 2.12 mg/dL (0.60-1.20); Potassium, Blood 4.5 mmol/L (3.5-5.5)
[2024-09-27] MEDS ORDERED: HydrALAZINE HCl 20 MG / ML 1ML Vial IV PRN (12:40)
[2024-09-27] MEDS ORDERED: MethylPREDNISolone Sod Succ 125 MG Vial IV SCH (17:00)
--- NOTE | 2024-09-27 19:38 | NUR ---
NO ACUTE CHANGES THIS SHIFT. PT NO EPISODES OF DIARRHEA, STATES IS FEELING STRONGER. PT A&OX4, HTN, PRN HYDRALOZINE GIVEN X1, 2 L O2, NC, SR 72 ON TELE. COMPLAINS OF CHRONIC PAIN AND BASELINE NEUROPATHY, CONTROLLED WITH SCHEDULED ULTRAM AND GABAPENTIN. PT IN BED CALL LIGHT IN REACH.
[2024-09-27] MEDS ORDERED: Metoprolol Tartrate 50 MG Tab PO SCH (21:00)
[2024-09-28] VITALS (8 sets, daily range): BP systolic 138–177; BP diastolic 67–82
--- NOTE | 2024-09-28 04:10 | NUR ---
GUIDANCE SECRETARY SUMMARY THIS RN ADIMTTED PT FROM THE ER 48 HOURS AGO. COMPARED TO THEN, PT HAS IMPROVED SIGNIFICANTLY. WHEN HE FIRST ARRIVED HE WAS A 2 PERSON ASSIST TO STAND/PIVOT TO THE BSC, EXTREMELY WEAK. HE IS NOW AN EASY STAND-BY ASSIST, ABLE TO WALK ALL THE WAY TO THE BATHROOM. WHEN HE FIRST ARRIVED HE WAS TACHYPNIC, VERY WHEEZY AND TIGHT AND COULD NOT TOLERATE ANY SLIGHT ACTIVITY WITHOUT BECOMING EXTREMELY SHORT OF BREATH AND NEEDED 6L OF OXYGEN TO GET TO THE BEDSIDE COMMODE. HE IS NOW ABLE TO TOLERATE ACTIVITY AND DOES NOT NEED EXTRA OXYGEN TO USE THE BATHROOM. HIS DIARRHEA WAS VERY FREQUENT WHEN HE ARRIVED AND NOW HE HASNT HAD ANY DIARRHEA ALL DAY. HIS BLOOD PRESSURES ARE HIGHER, HOWEVER. HIS HIGHEST BLOOD PRESSURE THIS SHIFT WAS 190/81 AND HE WAS GIVEN IV HYDRALAZINE WITH GOOD RESULTS (SEE VITAL SIGN DOCUMENTATION).
[2024-09-28 05:42] LABS: BASOPHILS ABSOLUTE AUTO 0.01 K/mm3 (0.00-0.23); BASOPHILS PERCENT AUTO 0 % (0-2); EOSINOPHILS PERCENT AUTO 0 % (0-6); Hematocrit 35.7 % (37.0-53.0); Hemoglobin 11.2 g/dL (13.5-17.5); IMMATURE GRAN ABSOLUTE AUTO 0.04 K/mm3 (0.00-0.10); IMMATURE GRAN PERCENT AUTO 0 % (0-1); LYMPHOCYTES ABSOLUTE AUTO 1.13 K/mm3 (0.84-5.20); LYMPHOCYTES PERCENT AUTO 9 % (21-46); MONOCYTES ABSOLUTE AUTO 0.58 K/mm3 (0.16-1.47); MONOCYTES PERCENT AUTO 5 % (4-13); Mean Corpuscular HGB 28.8 pg (26.0-34.0); Mean Corpuscular HGB Conc 31.4 g/dL (31.5-36.5); Mean Corpuscular Volume 92 fL (80-100); Mean Platelet Volume 10.9 fL (9.1-12.4); NEUTROPHILS ABSOLUTE AUTO 10.37 K/mm3 (1.96-9.15); NEUTROPHILS PERCENT AUTO 86 % (41-73); Platelet Count 176 K/mm3 (150-400); RDW Coefficient Variation 15.3 % (11.7-14.2); RDW Standard Deviation 51.1 fL (35.1-46.3); Red Blood Cell Count 3.89 M/mm3 (4.30-5.90); White Blood Cell Count 12.13 K/mm3 (4.00-11.30)
[2024-09-28 06:30] LABS: Bun/Creatinine Ratio 19.7 (12.0-20.0); Calcium, Blood 8.6 mg/dL (8.5-10.1); Creatinine, Blood 2.13 mg/dL (0.60-1.20); Potassium, Blood 4.4 mmol/L (3.5-5.5)
[2024-09-28] MEDS ORDERED: NS 1,000 ML IV SCH (08:00)
[2024-09-28] MEDS ORDERED: Gabapentin 300 MG Cap PO SCH ×2 (09:00→14:00)
[2024-09-28 13:25] LABS: Bun/Creatinine Ratio 20.5 (12.0-20.0); Calcium, Blood 8.2 mg/dL (8.5-10.1); Potassium, Blood 4.3 mmol/L (3.5-5.5)
--- NOTE | 2024-09-28 16:06 | NUR ---
SHIFT SUMMARY A&OX4, COOPERATIVE WITH CARE. NO ACUTE EVENTS THIS SHIFT. PATIENT REPORTED "FEELING CRUMMY" THIS MORNING. LUNG SOUNDS DIMINISHED T/O WITH CRACKLES IN THE UPPER LOBES/THROAT. PATIENT WAS ON 2L OF O2 THIS MORNING, NOW ON ROOM AIR SATTING BETWEEN 90-92%. DENIES CP/PRESSURE, HEADACHE, DIZZINESS, OR SOB. PATIENT SHOWERED AND WORKED WITH PT. APPETITE AND HYDRATION FAIR. CURRENTLY RESTING IN BED. CALL LIGHT WITHIN REACH.
[2024-09-29 01:46] VITALS: BP 179/90
[2024-09-29 04:11] VITALS: BP 145/66
--- NOTE | 2024-09-29 04:32 | NUR ---
SHIFT SUMMARY PT A&Ox4 AND PLEASANT. PT VERBALIZED NEUROPATHY IN HANDS THAT KEPT HIM AWAKE THE NIGHT BEFORE. MEDICATED WITH EVENING DOSE OF GABAPENTIN. PT'S BP ELEVATED WITH EVENING AND MORNING VITALS. HYDRALAZINE GIVEN PER EMAR WITH GOOD EFFECT. NO EVENTS ON TELE. INDEPENDENT IN ROOM. BED IN LOWEST POSITION AND CALL LIGHT IN REACH.
[2024-09-29 06:16] LABS: BASOPHILS ABSOLUTE AUTO 0.01 K/mm3 (0.00-0.23); BASOPHILS PERCENT AUTO 0 % (0-2); EOSINOPHILS PERCENT AUTO 0 % (0-6); Hematocrit 33.1 % (37.0-53.0); Hemoglobin 10.6 g/dL (13.5-17.5); IMMATURE GRAN PERCENT AUTO 1 % (0-1); LYMPHOCYTES ABSOLUTE AUTO 0.65 K/mm3 (0.84-5.20); LYMPHOCYTES PERCENT AUTO 6 % (21-46); MONOCYTES PERCENT AUTO 4 % (4-13); Mean Corpuscular Volume 90 fL (80-100); Mean Platelet Volume 11.2 fL (9.1-12.4); NEUTROPHILS ABSOLUTE AUTO 9.68 K/mm3 (1.96-9.15); NEUTROPHILS PERCENT AUTO 89 % (41-73); Platelet Count 167 K/mm3 (150-400); RDW Coefficient Variation 15.5 % (11.7-14.2); RDW Standard Deviation 51.4 fL (35.1-46.3); Red Blood Cell Count 3.66 M/mm3 (4.30-5.90); White Blood Cell Count 10.84 K/mm3 (4.00-11.30)
[2024-09-29 06:51] LABS: Bun/Creatinine Ratio 20.3 (12.0-20.0); Calcium, Blood 8.2 mg/dL (8.5-10.1); Creatinine, Blood 2.17 mg/dL (0.60-1.20); Potassium, Blood 4.4 mmol/L (3.5-5.5)
[2024-09-29 07:57] VITALS: BP 158/66
[2024-09-29] MEDS ORDERED: OSEL75CA PO ×2 (10:48→11:42)
[2024-09-29] MEDS ORDERED: PRED20 PO (10:49)
--- NOTE | 2024-09-29 14:40 | NUR ---
PT DISCHARGED HOME WITH ALL PAPERWORK REVIEWED AND EDUCATIONAL MATERIAL SENT WITH PT. PT HAD FRIEND TO TRANSPORT AND ALL PERSONAL BELONINGS.PT ESCORTED OUT VIA WHEEL CHAIR. AOX4 AND COOPERATIVE OF ALL CARE.
== END 2024-09-29 14:25 | disposition home health service (06) | DRG 193 ==
LOC: ER 22:17 → MEDS 09-26 02:51
PROVIDERS: Emergency Medicine; Family Medicine; Student in an Organized Health Care Education/Training Program; ADMIT Internal Medicine
DX: J10.01 Influenza due to other identified influenza virus with the same other identified influenza virus pneumonia (principal); J96.01 Acute respiratory failure with hypoxia; I13.0 Hypertensive heart and chronic kidney disease with heart failure and stage 1 through stage 4 chronic kidney disease, or unspecified chronic kidney disease; I50.32 Chronic diastolic (congestive) heart failure; J44.1 Chronic obstructive pulmonary disease with (acute) exacerbation; N17.9 Acute kidney failure, unspecified; G56.00 Carpal tunnel syndrome, unspecified upper limb; Z66 Do not resuscitate; N18.32 Chronic kidney disease, stage 3b; E78.5 Hyperlipidemia, unspecified; G62.9 Polyneuropathy, unspecified; G89.29 Other chronic pain; Z79.899 Other long term (current) drug therapy; Z99.81 Dependence on supplemental oxygen; F17.210 Nicotine dependence, cigarettes, uncomplicated; D63.1 Anemia in chronic kidney disease
CPT/HCPCS: 0241U; 36415; 71045; 71260; 80048; 80053; 81001; 82947; 83880; 84484; 85025; 85379; 87070; 87205; 93005; 93010; 94640; 94664; 94760; 97110; 97116; 97162; 99285-25; A9270; J0360; J0456; J0696; J1650; J2919; J7030; J7050; J7060; Q9967

== ENCOUNTER 2024-09-29 20:36 | Inpatient (IN) | payer MEDICARE, OTHER ==
[~2024-09-29] VITALS: Ht 180.3 cm; Wt 83.6 kg
[~2024-09-29 20:36] MED LIST changes: +OSEL75CA PO
[2024-09-29 21:00] LABS: Base Excess Venous -4.5 mmol/L; Bicarbonate Venous 20.6 mmol/L (24.0-30.0); PCO2 Venous 40.6 mmHg (38-42); pH Blood Venous 7.33 (7.34-7.37)
[2024-09-29] MEDS ORDERED: Nitroglycerin 0.4 MG SUBL SL ONE (21:05)
[2024-09-29] MEDS ORDERED: Nitroglycerin/D5W 250 ML IV SCH (21:05)
[2024-09-29 21:07] LABS: BASOPHILS ABSOLUTE AUTO 0.02 K/mm3 (0.00-0.23); BASOPHILS PERCENT AUTO 0 % (0-2); EOSINOPHILS PERCENT AUTO 0 % (0-6); Hematocrit 38.3 % (37.0-53.0); Hemoglobin 11.7 g/dL (13.5-17.5); IMMATURE GRAN ABSOLUTE AUTO 0.19 K/mm3 (0.00-0.10); IMMATURE GRAN PERCENT AUTO 1 % (0-1); LYMPHOCYTES ABSOLUTE AUTO 0.76 K/mm3 (0.84-5.20); LYMPHOCYTES PERCENT AUTO 5 % (21-46); MONOCYTES ABSOLUTE AUTO 0.54 K/mm3 (0.16-1.47); MONOCYTES PERCENT AUTO 4 % (4-13); Mean Corpuscular HGB 28.4 pg (26.0-34.0); Mean Corpuscular HGB Conc 30.5 g/dL (31.5-36.5); Mean Corpuscular Volume 93 fL (80-100); Mean Platelet Volume 10.7 fL (9.1-12.4); NEUTROPHILS ABSOLUTE AUTO 13.15 K/mm3 (1.96-9.15); NEUTROPHILS PERCENT AUTO 90 % (41-73); Platelet Count 214 K/mm3 (150-400); RDW Coefficient Variation 15.6 % (11.7-14.2); Red Blood Cell Count 4.12 M/mm3 (4.30-5.90); White Blood Cell Count 14.66 K/mm3 (4.00-11.30)
[2024-09-29] MEDS ORDERED: Cefepime HCl 1,000 MG in NS 100 ML IV ONE (21:20)
[2024-09-29 21:26] LABS: Albumin, Blood 2.8 g/dL (3.4-5.0); Albumin/Globulin Ratio 0.7 (0.8-1.8); Bilirubin, Total 0.4 mg/dL (0.1-1.0); Bun/Creatinine Ratio 22.1 (12.0-20.0); Calcium, Blood 8.2 mg/dL (8.5-10.1); Creatinine, Blood 2.04 mg/dL (0.60-1.20); Globulin, Blood 3.8 g/dL (2.2-4.0); Total Protein, Blood 6.6 g/dL (6.4-8.2)
[2024-09-29] MEDS ORDERED: Vancomycin HCL 2,000 MG in NS 500 ML IV ONE (21:30)
[2024-09-29] MEDS ORDERED: FLU VACC TS2024-25(6MOS UP)/PF 45 MCG/0.5 ML SYRINGE IM ONE (22:05)
[2024-09-29] MEDS ORDERED: Ondansetron HCl 2 MG / ML 2ML Vial IV PRN (22:05)
[2024-09-29] MEDS ORDERED: Lactated Ringer's 1,000 ML IV SCH (23:00)
[2024-09-30] VITALS (53 sets, daily range): BP systolic 106–181; BP diastolic 51–100
[2024-09-30] MEDS ORDERED: NiCARdipine HCL 500 MCG/5 ML SYR IV SCH (00:55)
[2024-09-30] MEDS ORDERED: NiCARdipine HCL 50 MG in NS 250 ML IV SCH (01:20)
[2024-09-30 03:51] LABS: Base Excess Venous -3.5 mmol/L; Bicarbonate Venous 21.8 mmol/L (24.0-30.0); PCO2 Venous 39.2 mmHg (38-42); pH Blood Venous 7.36 (7.34-7.37)
[2024-09-30] MEDS ORDERED: Oseltamvir Phosphate 30 MG Cap PO ONE (03:55)
[2024-09-30] MEDS ORDERED: Ipratropium/Albuterol SulF 2.5-0.5MG/3 ML Amp INH SCH (04:25)
[2024-09-30] MEDS ORDERED: CefTRIAXone Sodium 1,000 MG in NS 100 ML IV SCH (04:30)
[2024-09-30 06:02] LABS: BASOPHILS ABSOLUTE AUTO 0.01 K/mm3 (0.00-0.23); BASOPHILS PERCENT AUTO 0 % (0-2); EOSINOPHILS PERCENT AUTO 0 % (0-6); Hematocrit 34.2 % (37.0-53.0); Hemoglobin 10.8 g/dL (13.5-17.5); IMMATURE GRAN ABSOLUTE AUTO 0.06 K/mm3 (0.00-0.10); IMMATURE GRAN PERCENT AUTO 1 % (0-1); LYMPHOCYTES ABSOLUTE AUTO 0.92 K/mm3 (0.84-5.20); LYMPHOCYTES PERCENT AUTO 9 % (21-46); MONOCYTES ABSOLUTE AUTO 0.66 K/mm3 (0.16-1.47); MONOCYTES PERCENT AUTO 6 % (4-13); Mean Corpuscular HGB 29.2 pg (26.0-34.0); Mean Corpuscular HGB Conc 31.6 g/dL (31.5-36.5); Mean Corpuscular Volume 92 fL (80-100); Mean Platelet Volume 10.5 fL (9.1-12.4); NEUTROPHILS PERCENT AUTO 85 % (41-73); Platelet Count 160 K/mm3 (150-400); RDW Coefficient Variation 15.5 % (11.7-14.2); RDW Standard Deviation 52.4 fL (35.1-46.3); White Blood Cell Count 10.75 K/mm3 (4.00-11.30)
[2024-09-30 07:34] LABS: Albumin, Blood 2.4 g/dL (3.4-5.0); Albumin/Globulin Ratio 0.7 (0.8-1.8); Bilirubin, Total 0.4 mg/dL (0.1-1.0); Bun/Creatinine Ratio 23.3 (12.0-20.0); Creatinine, Blood 1.89 mg/dL (0.60-1.20); Globulin, Blood 3.5 g/dL (2.2-4.0); Potassium, Blood 4.7 mmol/L (3.5-5.5); Total Protein, Blood 5.9 g/dL (6.4-8.2)
[2024-09-30] MEDS ORDERED: Empagliflozin 10 MG TAB PO SCH (09:00)
[2024-09-30] MEDS ORDERED: Furosemide 10 MG/ML 4ML Vial IV SCH ×2 (09:00→15:30)
[2024-09-30] MEDS ORDERED: DULoxetine HCL 30 MG Cap DR PO SCH (09:00)
[2024-09-30] MEDS ORDERED: Lactobacil 2-S.Thermo-Bifido 1 1 Cap PO SCH (09:00)
[2024-09-30] MEDS ORDERED: Calcitriol 0.25 MCG Cap PO SCH (09:00)
[2024-09-30] MEDS ORDERED: Metoprolol Tartrate 50 MG Tab PO SCH (09:00)
[2024-09-30] MEDS ORDERED: Aspirin 81 MG Chew PO SCH (09:00)
[2024-09-30] MEDS ORDERED: Enoxaparin 40 MG/0.4 ML SYR SC SCH (09:00)
[2024-09-30] MEDS ORDERED: Doxycycline Hyclate 100 MG TAB PO SCH (09:00)
[2024-09-30] MEDS ORDERED: Gabapentin 300 MG Cap PO SCH ×2 (09:00→21:00)
--- NOTE | 2024-09-30 09:30 | NUR ---
PT ARRIVES TO ICU 7 FROM ER. ON BIPAP 12/6 FIO2 30%. ON NICARDIPINE GTT AT 5MG/HR. PT IS A/O X4 ABLE TO ANSWER QUESTIONS BUT DOES GET SOB WITH EXERTION. CONDOM CATH PLACED DUE TO STRICT I&O'S AND GETTING LASIX. DR. MORIN AND DR. BRITO IN TO SEE PT QUICKLY AFTER ARRIVAL TO ROOM. PT USING CALL LIGHT APPROPRIATELY.
[2024-09-30] MEDS ORDERED: Cefepime HCl 2,000 MG in NS 100 ML IV SCH (11:58)
--- NOTE | 2024-09-30 18:03 | NUR ---
SUMMARY PT RESTING IN BED. ON A BREAK FROM BIPAP WITH 4L NC. TOLERATING WATER. USING CALL LIGHT APPROPRIATELY. NICARDIPINE GTT AT 5MG/HR. LASIX GIVEN WITH GOOD URINE OUTPUT AFTERWARDS. CONDOM CATH FOR STRICT I&O'S. CONVERSING ON PHONE WITHOUT DYSPNEA OR INCREASED WOB.
[2024-09-30] MEDS ORDERED: TraMADol HCl 50 MG Tab PO PRN (21:00)
[2024-09-30] MEDS ORDERED: Vancomycin HCL 1,000 MG in NS 250 ML IV SCH (22:00)
--- NOTE | 2024-09-30 23:40 | NUR ---
UPDATE ASSUMED CARE OF PT AT 1900, PT AWAKE AND ALERT ORIENTED X4 IN BED, VSS, AFEBRILE, NOTED SOB WITH REPOSITIONING AND EXERTION, O2 AT 4 LPM NC WITH SPO2>90%, SBP 170S, NICARIPINE INFUSING AT 5 MG/HR AND TITRATED PER ORDERS, SCHEDULED MEDS GIVEN PO, PT SWALLOWED WITHOUT DIFFICULTY, PT CONTINENT X1 BM ON BEDPAN,REFUSES BIPAP FOR SLEEP, O2 INCREASED TO 5 LPM NC TO KEEP SPO2 >90%,SIDE RAILS UP X2 CALL LIGHT IN REACH
[2024-10-01] VITALS (35 sets, daily range): BP systolic 129–169; BP diastolic 54–124
[2024-10-01 03:48] LABS: BASOPHILS ABSOLUTE AUTO 0.01 K/mm3 (0.00-0.23); BASOPHILS PERCENT AUTO 0 % (0-2); EOSINOPHILS ABSOLUTE AUTO 0.02 K/mm3 (0.00-0.68); EOSINOPHILS PERCENT AUTO 0 % (0-6); Hematocrit 35.4 % (37.0-53.0); Hemoglobin 11.4 g/dL (13.5-17.5); IMMATURE GRAN ABSOLUTE AUTO 0.05 K/mm3 (0.00-0.10); IMMATURE GRAN PERCENT AUTO 1 % (0-1); LYMPHOCYTES ABSOLUTE AUTO 1.32 K/mm3 (0.84-5.20); LYMPHOCYTES PERCENT AUTO 19 % (21-46); MONOCYTES ABSOLUTE AUTO 0.56 K/mm3 (0.16-1.47); MONOCYTES PERCENT AUTO 8 % (4-13); Mean Corpuscular HGB 28.6 pg (26.0-34.0); Mean Corpuscular HGB Conc 32.2 g/dL (31.5-36.5); Mean Corpuscular Volume 89 fL (80-100); Mean Platelet Volume 10.5 fL (9.1-12.4); NEUTROPHILS PERCENT AUTO 72 % (41-73); Platelet Count 178 K/mm3 (150-400); RDW Coefficient Variation 15.1 % (11.7-14.2); RDW Standard Deviation 48.5 fL (35.1-46.3); Red Blood Cell Count 3.99 M/mm3 (4.30-5.90); White Blood Cell Count 7.06 K/mm3 (4.00-11.30)
[2024-10-01 04:02] LABS: Bun/Creatinine Ratio 21.9 (12.0-20.0); Calcium, Blood 8.1 mg/dL (8.5-10.1); Creatinine, Blood 2.15 mg/dL (0.60-1.20); Potassium, Blood 3.5 mmol/L (3.5-5.5)
--- NOTE | 2024-10-01 06:07 | NUR ---
SHIFT SUMMARY NO ACUTE EVENTS THIS SHIFT, SBP 130-150S, NICARDIPINE GTT TITRATED PER ORDERS AND OFF AT 0605, AFEBRILE, SB-SR 50-60S BPM BM X1, CONDOM CATH ON AND PATENT, VOIDING 3550 ML CLEAR YELLOW URINE WITHOUT DIFFICULTY, O2 AT 5 LPM NC WITH SPO2 >90% WHILE SLEEPING, PT REFUSED BIPAP, SIDE RAILS UP X2 CALL LIGHT IN REACH
[2024-10-01] MEDS ORDERED: Benzonatate 100 MG Cap PO PRN (07:50)
[2024-10-01] MEDS ORDERED: Losartan Potassium 50 MG Tab PO SCH (08:00)
[2024-10-01] MEDS ORDERED: AmLODIPine Besylate 5 MG Tab PO SCH (13:00)
--- NOTE | 2024-10-01 16:23 | NUR ---
SUMMARY PT A/O X4. REPOSITIONS INDEP AND USES CALL LIGHT APPROPRIATELY. PO MEDS FOR HTN INCREASED TODAY. HAS BEEN OFF NICARDIPINE GTT SINCE NOC SHIFT. EATING WELL. TITRATED O2 DOWN TO 2L AND HAS NOT NEEDED BIPAP TODAY. PT CHANGED TO MEDICAL STATUS. TRANSFERED VIA BED TO ROOM 338. PT ABLE TO STAND AND PIVOT TO BED WITHOUT ISSUE. BELONGINGS INCLUDE CLOTHES, CELL PHONE AND TRACK WELDER.
--- NOTE | 2024-10-01 16:24 | NUR ---
TRANSFER NOTE: PATIENT ARRIVED TO THE UNIT VIA BED AND WAS ABLE TO SELF TRANSFER TO THE OTHER BED. PATIENT ON 2 L NASAL CANNULA O2, CONDOM CATH IN PLACE, SITTING AT EDGE OF BED, ON THE PHONE, NO SIGNS OR SYMPTOMS OF DISTRESS, CALL LIGHT WITHIN REACH, PLAN OF CARE ONGOING.
[2024-10-02] VITALS (7 sets, daily range): BP systolic 109–168; BP diastolic 68–85
[2024-10-02] MEDS ORDERED: Ipratropium/Albuterol SulF 2.5-0.5MG/3 ML Amp INH PRN (02:50)
[2024-10-02 07:45] LABS: BASOPHILS ABSOLUTE AUTO 0.01 K/mm3 (0.00-0.23); BASOPHILS PERCENT AUTO 0 % (0-2); EOSINOPHILS ABSOLUTE AUTO 0.17 K/mm3 (0.00-0.68); EOSINOPHILS PERCENT AUTO 3 % (0-6); Hematocrit 38.5 % (37.0-53.0); Hemoglobin 12.4 g/dL (13.5-17.5); IMMATURE GRAN ABSOLUTE AUTO 0.04 K/mm3 (0.00-0.10); IMMATURE GRAN PERCENT AUTO 1 % (0-1); LYMPHOCYTES ABSOLUTE AUTO 1.79 K/mm3 (0.84-5.20); LYMPHOCYTES PERCENT AUTO 26 % (21-46); MONOCYTES ABSOLUTE AUTO 0.56 K/mm3 (0.16-1.47); MONOCYTES PERCENT AUTO 8 % (4-13); Mean Corpuscular HGB 28.7 pg (26.0-34.0); Mean Corpuscular HGB Conc 32.2 g/dL (31.5-36.5); Mean Corpuscular Volume 89 fL (80-100); Mean Platelet Volume 10.6 fL (9.1-12.4); NEUTROPHILS ABSOLUTE AUTO 4.29 K/mm3 (1.96-9.15); NEUTROPHILS PERCENT AUTO 63 % (41-73); Platelet Count 205 K/mm3 (150-400); RDW Coefficient Variation 14.9 % (11.7-14.2); RDW Standard Deviation 49.5 fL (35.1-46.3); Red Blood Cell Count 4.32 M/mm3 (4.30-5.90); White Blood Cell Count 6.86 K/mm3 (4.00-11.30)
[2024-10-02 08:00] LABS: Bun/Creatinine Ratio 19.3 (12.0-20.0); Calcium, Blood 8.2 mg/dL (8.5-10.1); Creatinine, Blood 2.23 mg/dL (0.60-1.20); Potassium, Blood 3.5 mmol/L (3.5-5.5)
[2024-10-02] MEDS ORDERED: Losartan Potassium 50 MG Tab PO SCH ×2 (08:00)
[2024-10-02] MEDS ORDERED: Furosemide 10 MG/ML 4ML Vial IV SCH (09:00)
[2024-10-02] MEDS ORDERED: Cefepime HCl 1,000 MG in NS 100 ML IV SCH (09:00)
[2024-10-02] MEDS ORDERED: Furosemide 40 MG Tab PO SCH (11:00)
[2024-10-02] MEDS ORDERED: FARXIGA5 MG PO (12:35)
[2024-10-02] MEDS ORDERED: FURO20 PO (12:36)
[2024-10-02] MEDS ORDERED: Losartan Potassium 50 MG Tab PO ONE (13:00)
--- NOTE | 2024-10-02 13:00 | NUR ---
CALLED AND REPORTED BP AND PULSE TO DR. JEFFERY AND HE ADVISED TO GIVE THE ADDITIONAL 50 MG OF COZAAR
--- NOTE | 2024-10-02 17:15 | NUR ---
SHIFT SUMMARY: PT A&OX4/1 PERSON ASSIST, ON ROOMAIR, D/C'D DROPLET PRECAUTIONS, COMPLETED HOME O2 EVALUATION; DOES NOT QUALIFY FOR OXYGEN. PATIENT PENDING D/C DUE TO HYPERTENSION AMD CHANGES IN MEDICATION; POSSIBLE D/C TOMORROW 10/03/24. PATIENT IN HIS BED, SLEEPING, NO SIGNS OR SYMPTOMS OF DISTRESS, NO EVENTS ON TELE, CALL LIGHT WITHIN REACH, PLAN OF CARE ONGOING.
--- NOTE | 2024-10-03 04:08 | NUR ---
SHIFT SUMMARY: PT IS A 73 YO DNR WHO WAS ADMITTED FOR ACUTE RESP FAILURE W/HYPOXIA WHICH IS NOW RESOLVED. PT IS STAYING FOR OBSERVATION OF BLOOD PRESSURES WITH NEW HTN MEDICATION. PT IS A&OX4 AND HAS BEEN PLEASANT THIS SHIFT.PT IS ON RA AND SOUNDS A LITTLE COURSE AND WHEEZY BUT FEELING GOOD. PT USES BEDSIDE URINAL AND GETS LITTLE OUTPUT AND URINATES OFTEN WITH A MAJOR SENSE OF URGENCY WHEN HE DOES NEED TO URINATE. PT OFTEN REMOVES TELE LEADS AND TELE MONITOR BUT COOPERATES TO PUT IT BACK ON. WHEN PT IS UP HE IS A SBA W/FWW. PT IS LOOKING TO D/C TODAY AND BP MEDICATIONS WERE HELD AT BEGINNING OF SHIFT FOR HEART RATE BEING TO LOW AND NOT WITHIN PARAMETERS TO RECEIVE MEDICATION. PT'S TELE HAS BEEN 50-60'S SR. PT HAS A PG IN KEVIN. PT KEEPS HANDS WRAPPED TO HELP WITH HIS NEUROPATHY. PT USES CALL LIGHT APPROPRIATELY AND MAKES NEEDS KNOWN.
[2024-10-03 05:01] VITALS: BP 137/78
[2024-10-03 05:36] LABS: BASOPHILS ABSOLUTE AUTO 0.02 K/mm3 (0.00-0.23); BASOPHILS PERCENT AUTO 0 % (0-2); EOSINOPHILS ABSOLUTE AUTO 0.33 K/mm3 (0.00-0.68); EOSINOPHILS PERCENT AUTO 5 % (0-6); Hematocrit 37.2 % (37.0-53.0); Hemoglobin 12.2 g/dL (13.5-17.5); IMMATURE GRAN ABSOLUTE AUTO 0.08 K/mm3 (0.00-0.10); IMMATURE GRAN PERCENT AUTO 1 % (0-1); LYMPHOCYTES ABSOLUTE AUTO 2.01 K/mm3 (0.84-5.20); LYMPHOCYTES PERCENT AUTO 28 % (21-46); MONOCYTES PERCENT AUTO 9 % (4-13); Mean Corpuscular HGB 28.8 pg (26.0-34.0); Mean Corpuscular HGB Conc 32.8 g/dL (31.5-36.5); Mean Corpuscular Volume 88 fL (80-100); Mean Platelet Volume 10.6 fL (9.1-12.4); NEUTROPHILS ABSOLUTE AUTO 4.04 K/mm3 (1.96-9.15); NEUTROPHILS PERCENT AUTO 57 % (41-73); Platelet Count 214 K/mm3 (150-400); RDW Coefficient Variation 14.8 % (11.7-14.2); RDW Standard Deviation 47.5 fL (35.1-46.3); Red Blood Cell Count 4.23 M/mm3 (4.30-5.90); White Blood Cell Count 7.08 K/mm3 (4.00-11.30)
[2024-10-03 06:17] LABS: Bun/Creatinine Ratio 20.3 (12.0-20.0); Calcium, Blood 8.6 mg/dL (8.5-10.1); Creatinine, Blood 2.02 mg/dL (0.60-1.20); Potassium, Blood 3.4 mmol/L (3.5-5.5)
[2024-10-03 07:58] VITALS: BP 148/118
[2024-10-03] MEDS ORDERED: Losartan Potassium 50 MG Tab PO SCH (08:00)
[2024-10-03] MEDS ORDERED: NS 250 ML IV PRN (09:35)
[2024-10-03] MEDS ORDERED: AMLO5 PO (11:02)
[2024-10-03] MEDS ORDERED: BENZ100A PO (11:03)
[2024-10-03] MEDS ORDERED: LOSA50 PO (11:04)
[2024-10-03] MEDS ORDERED: POTCHL20ER PO (11:04)
[2024-10-03] MEDS ORDERED: SULTRIDS PO (11:05)
--- NOTE | 2024-10-03 12:36 | NUR ---
DISCHARGE SUMMARY: PT AOX4 ANXIOUS ABOUT NEEDING MORE HOME HEALTH OR IT NOT BEING ENOUGH. INSTRUCTED TO FOLLOW UP WITH THEIR PCP TERRELL TO FIGURE OUT WHAT HELP THEY NEED. WAS ABLE TO AMBULATE INTO WHEELCHAIR WITHOUT MILD DISCOMFORT. PT PICKED THEM UP AT PATIENT ENTRANCE. DR JEFFERY SAW PT BEFORE LEAVING HOSPITAL.
== END 2024-10-03 12:21 | disposition home health service (06) | DRG 177 ==
LOC: ER 20:36 → MEDS 22:13 → ERHOLD 22:13 → ICUE 22:13 → MEDS 10-01 16:03
PROVIDERS: Student in an Organized Health Care Education/Training Program; ADMIT Student in an Organized Health Care Education/Training Program
PROC: 5A09357 Assistance with Respiratory Ventilation, Less than 24 Consecutive Hours, Continuous Positive Airway Pressure (ICD-10-PCS; principal; 2024-09-29)
DX: J15.69 Pneumonia due to other Gram-negative bacteria (principal); I50.33 Acute on chronic diastolic (congestive) heart failure; J96.01 Acute respiratory failure with hypoxia; I16.1 Hypertensive emergency; I13.0 Hypertensive heart and chronic kidney disease with heart failure and stage 1 through stage 4 chronic kidney disease, or unspecified chronic kidney disease; J44.9 Chronic obstructive pulmonary disease, unspecified; B96.89 Other specified bacterial agents as the cause of diseases classified elsewhere; E78.5 Hyperlipidemia, unspecified; F17.210 Nicotine dependence, cigarettes, uncomplicated; Z66 Do not resuscitate; Z79.899 Other long term (current) drug therapy; Z79.82 Long term (current) use of aspirin; Z79.84 Long term (current) use of oral hypoglycemic drugs; N18.32 Chronic kidney disease, stage 3b
CPT/HCPCS: 36415; 71045; 80048; 80053; 82803; 82947; 83605; 83735; 83880; 84145; 85025; 87040; 93005; 93010; 93308; 93321; 94640; 94660; 94664; 94760; 94761; 94762; 97116; 97162; 97530; 99285-25; A9270; C1751; J0692; J0696; J1650; J1940; J3370; J7040; J7050

== ENCOUNTER → 2025-01-05 | Outpatient (CLI) | payer MEDICARE, OTHER ==
[~2025-01-05] MED LIST changes: +AMLO5 PO; +BENZ100A PO; +FARXIGA5 MG PO; +FURO20 PO; +POTCHL20ER PO; +SULTRIDS PO
[2025-01-05 15:30] LABS: Creatinine Urine 58.1 mg/dL (27.00-270.00); Protein, Urine Quantitative 213.5 mg/dL (0.0-11.9)
== END ==
LOC: LAB 12:57 → LAB SHORT 12:57 → LAB FUT 10-06 15:05
PROVIDERS: Internal Medicine Nephrology
DX: N18.30 Chronic kidney disease, stage 3 unspecified (principal); D63.1 Anemia in chronic kidney disease; N25.81 Secondary hyperparathyroidism of renal origin; E55.9 Vitamin D deficiency, unspecified; E78.00 Pure hypercholesterolemia, unspecified; R76.9 Abnormal immunological finding in serum, unspecified; R94.5 Abnormal results of liver function studies; R94.6 Abnormal results of thyroid function studies
CPT/HCPCS: 81050; 82043; 82570; 84156

== ENCOUNTER → 2025-05-11 | Outpatient (CLI) | payer MEDICARE, OTHER | END | disposition home or self-care (01) | LOC: LAB 13:00 → LAB SHORT 13:00 | DX: N39.0 Urinary tract infection, site not specified (principal); R31.9 Hematuria, unspecified | CPT/HCPCS: 87077; 87086; 87186 ==

== ENCOUNTER → 2025-07-01 | Outpatient (CLI) | payer MEDICARE, OTHER ==
[2025-07-01 13:31] LABS: Protein, Urine Quantitative 155.0 mg/dL (0.0-11.9)
== END ==
LOC: LAB 09:00 → LAB SHORT 09:00 → LAB FUT 06-29 14:55
PROVIDERS: Internal Medicine Nephrology
DX: N18.30 Chronic kidney disease, stage 3 unspecified (principal); D63.1 Anemia in chronic kidney disease
CPT/HCPCS: 81050; 84156